=== PATIENT | male | born 1970 | race Caucasian/White ===

== ENCOUNTER 2016-09-18 10:34 | Inpatient (IN) | payer OTHER ==
[~2016-09-18] VITALS: Ht 180.3 cm; Wt 88.7 kg
[~2016-09-18 10:34] MED LIST: LACT1CAP37 PO; MULT-1018 PO
[2016-09-18 10:54] VITALS: BP 112/78; PULSE 86; RESP 16; O2SAT 99
[2016-09-18 11:36] LABS: APPEARANCE,URINE CLEAR (CLEAR,HAZY); COLOR,URINE YELLOW (YELLOW); OCCULT BLOOD,URINE NEGATIVE (NEGATIVE); UROBILINOGEN,URINE NORMAL (NORMAL)
--- NOTE | 2016-09-18 11:43 | ED.REPORT ---
HPI-Abd Pain M 40 and Over Date of Service September 18, 2016 ED Provider: Mauricio Alvarado DO 45 y/o male with a hx of diverticulitis presents to the ED complaining of sharp abdominal pain, onset yesterday. Pt reports he feels like his diverticulitis is flaring up. His current symptoms are similar to the previous sx when he had a microperforation. Associated sx include subjective fever, lower back pain, chills, nausea and constipation for over a week. He aslo reports that he feels there is pressure on his bladder when he breathes. The pt denies vomiting, dyspnea, chest pain and cough. He denies prior diagnosis of bowel obstruction. The pt has an appointment with Dr. Sanderson, GI, next month. Nursing Notes Stated Complaint: ABDOMINAL PAIN Chief Complaint: Male Abdominal Pain Nursing Notes Reviewed: Yes Allergies: Coded Allergies: No Known Allergies (Unverified , 09/18/16) Scheduled Lactobacillus Rhamnosus GG (Culturelle) 1 Each Capsule 1 CAPSULE PO [facility] Multivitamin (Multi Vitamin Daily) 1 Each Tablet 1 EACH PO DAILY General Time Seen by MD: 11:37 Chief Complaint Abdominal pain Hx Obtained From: Patient Arrived By: Walk-in Sudden in Onset?: No Onset Occurred: 1 week ago Symptom Duration: Since onset Progression since Onset: Constant Location: : LLQ Quality: Painful Radiation: : Back Severity: Current: Severe Severity: Maximum: Severe Recent Healthcare: No recent doctor visit Similar Sx Previous: Yes Past Medical History Past Medical History Reports: Diverticulitis Past Surgical History Rhinoplasty Smoking History Former Smoker Social History Alcohol Use: "Social" Drug Use: THC Ambulatory Status Independent Review of Systems Constitutional: Reports: Chills, Fever (subjective) Respiratory: Denies: Dyspnea on exertion, Non-productive cough Cardiovascular: Denies: Chest pain GI: Reports: Abdominal pain, Constipation, Nausea, Denies: Vomiting Musculoskeletal: Reports: Back pain Complete sys rev & neg: except as marked. Physical Exam Initial Vital Signs Vital Signs (First) Date Time Temp Pulse Resp B/P Pulse Ox O2 Delivery O2 Flow Rate FiO2 09/18/16 10:54 36.9 86 16 112/78 99 Room Air Initial VS: Reviewed Head / Eyes: Atraumatic, Normocephalic, PERRL ENT: Mucous membranes moist, Conjunctiva normal, No scleral icterus Neck: Supple, Non-tender, Full range of motion Extremities: Vascular intact, Neuro intact, No swelling, No tenderness Skin: Warm, Dry, No cyanosis Neurologic: Alert, Oriented, Nonfocal Psychiatric: Mood/affect normal, Behavior normal, Normal thought content General/Constitutional: Awake, Alert, Cooperative Distress / Hydration: Positive: Distress mild Respiratory / Chest: Atraumatic, Breath sounds NL, Breath sounds = bilat, No respiratory distress, No rales, No rhonchi, No wheezing Cardiovascular: Heart rate NL, Regular rhythm, Heart sounds NL, No gallop, No murmurs Abdomen: Atraumatic, Soft, No guarding, No rebound Mild lower quadrant tenderness Back: Atraumatic, Full range of motion Interpretation & Diagnostics Lab Results Interpretation Result Diagram: 09/18/16 1134 09/18/16 1134 Test 09/18/16 11:12 09/18/16 11:34 Urine Color Yellow (YELLOW) Urine Appearance Clear (CLEAR,HAZY) Urine pH 6.0 (5.0-8.0) Urine Specific [place] 1.031 (1.003-1.035) Urine Protein Negativemg/dL (NEG,TRACE) Urine Glucose (UA) Negativemg/dL (NEGATIVE) Urine Ketones 40mg/dL (NEGATIVE) Urine Occult Blood Negative (NEGATIVE) Urine Nitrite Negative (NEGATIVE) Urine Bilirubin Negative (NEGATIVE) Urine Urobilinogen Normalmg/dL (NORMAL) Urine Leukocyte Esterase Negative (NEGATIVE) Urine RBC 0-2/hpf (0-2) Urine WBC 0-5/hpf (0-5) Urine Epithelial Cells Occasional/hpf (NONE-MOD) Urine Crystals None seen (NONE SEEN) Urine Bacteria None/hpf (NONE-FEW) Urine Hyaline Casts None/lpf (NONE) Urine Granular Casts None seen (NONE SEEN) Urine Waxy Casts None seen (NONE SEEN) Urine Red Blood Cell Casts None seen (NONE SEEN) Urine White Blood Cell Casts None seen (NONE SEEN) Urine Mucus Present (None Seen) Urine Trichomonas None seen (NONE SEEN) Urine Yeast None (NONE SEEN) Urinalysis Comment None Urine Culture Reflexed Not indicated White Blood Count 13.3th/mm3 (3.8-10.1) Red Blood Count 4.97mil/mm3 (4.40-5.80) Hemoglobin 15.1g/dL (13.8-17.2) Hematocrit 44.0% (41.0-50.0) Mean Corpuscular Volume 88.5fL (81-100) Mean Corpuscular Hemoglobin 30.4pg (27.0-35.0) Mean Corpuscular Hemoglobin Concent 34.3% (32.0-37.0) Red Cell Distribution Width 12.5% (12.3-15.4) Platelet Count 271bil/L (150-400) Neutrophils (%) (Auto) 79.8% (40-74) Lymphocytes (%) (Auto) 10.5% (14-46) Monocytes (%) (Auto) 8.6% (4-12) Eosinophils (%) (Auto) 0.7% (0-5) Basophils (%) (Auto) 0.2% (0-3) Sodium Level 140mEq/L (134-144) Potassium Level 4.7mEq/L (3.5-5.2) Chloride Level 101mEq/L (97-108) Carbon Dioxide Level 26mmol/L (18-29) Blood Urea Nitrogen 15mg/dL (6-24) Creatinine 0.80mg/dL (0.76-1.27) Estimat Glomerular Filtration Rate 112mL/min (>59) Glucose Level 90mg/dL (60-99) Calcium Level 9.4mg/dL (8.5-10.1) Magnesium Level 2.0mg/dL (1.6-2.6) Total Bilirubin 0.5mg/dL (0.0-1.2) Aspartate Amino Transf (AST/SGOT) 15U/L (0-50) Alanine Aminotransferase (ALT/SGPT) 17U/L (0-44) Alkaline Phosphatase 78U/L (25-150) Total Protein 7.0g/dL (6.4-8.4) Albumin 4.2g/dL (3.4-5.0) Lipase 10U/L (13-60) Hold Giraldo Top Tube Received (Received) CT Abd / Pelvis Interpretation IMPRESSION: 1. Severe diverticulitis of the proximal sigmoid colon associated with intramural abscess extending from the colonic wall into the urinary bladder wall. Findings indicate colovesical fistula. 2. Normal appendix. Dictated by: Ti Parks M.D. on 09/18/2016 at 13:27 Approved by: Ti Parks M.D. on 09/18/2016 at 13:30 Study type: Abdominal CT IV contrast Interpretation / Wet Read by: Interpret - Radiologist Re-Eval/Medical Decision Med Decision/Clinical Course Diverticulitis with abscess and possible colovesicular fistula. Zosyn given, and surgery consulted. Patient will be admitted Source of Hx: Old records Time of Eval: 13:36 Re-Evaluation/Progress Note: Pt rechecked. Discussed lab, imaging results and plan to admit. Pt understands and agrees with the plan for admission. All questions addressed. Consultation #1: Referral / Consult Name: Reagan Clemens MD Consulted With: Surgeon Call Returned at: 13:40 Car Rental Manager: Will see patient, Agrees with eval, Agrees with plan Consultation #2: Referral / Consult Name: Krissy Carmen DO Consulted With: Hospitalist Call Returned at: 15:25 Car Rental Manager: Will see patient, Agrees with eval, Agrees with plan, Accepts admit Counseled Regarding: Diagnosis, Lab results, Need for admission Discharge & Departure Primary Impression: Diverticulitis Diverticulitis site: large intestine Diverticulitis bleeding: without bleeding Diverticulitis complication: with abscess Qualified Code: K57.20 - Diverticulitis of large intestine with perforation and abscess without bleeding Disposition: ADMITTED TO HOSPITAL Vital Signs - All Vital Signs Date Time Temp Pulse Resp B/P Pulse Ox O2 Delivery O2 Flow Rate FiO2 09/18/16 13:23 80 14 133/74 97 Room Air 09/18/16 10:54 36.9 86 16 112/78 99 Room Air )( All Prior VS Reviewed: Yes Referrals: Len Clemens MD (PCP) Scribe Attestation Portions of this note were transcribed by Jodi Rasheed. I, , personally performed the history, physical exam and medical decision-making;I reviewed and confirmed the accuracy of the information in the transcribed note. Signed by Holden Duke. 09/18/16 3353 copies to: Len Clemens MD, Timothy S DO September 18, 2016 11:43 Jodi Rasheed September 18, 2016 11:52
[2016-09-18 11:55] LABS: BASOPHILS % (AUTO) 0.2 % (0-3); EOSINOPHILS % (AUTO) 0.7 % (0-5); MONOCYTES % (AUTO) 8.6 % (4-12); Mean Corpuscular Hemoglobin 30.4 pg (27.0-35.0); Mean Corpuscular Volume 88.5 fL (81-100); NEUTROPHILS % (AUTO) 79.8 % (40-74); Platelet Count 271 bil/L (150-400)
[2016-09-18] MEDS ORDERED: 0.9% Sodium Chloride 1,000 ML IV ONE (11:55)
[2016-09-18] MEDS: Ondansetron 2 mg/mL 2 mL Inj IVPUSH PRN ×2 (12:10→20:00)
[2016-09-18] MEDS: HYDROmorphone 1 mg/mL Inj IVPUSH PRN ×2 (12:12→14:00)
[2016-09-18 13:23] VITALS: BP 133/74; PULSE 80; RESP 14; O2SAT 97
--- NOTE | 2016-09-18 13:32 | DRSVH ---
PROCEDURE: CT ABDOMEN AND PELVIS WITH CONTRAST (PNL-7102) INDICATIONS: llq pain TECHNIQUE: After the administration of intravenous contrast, 5 mm thick sections acquired from the diaphragm to the symphysis. 5 mm coronal and sagittal reformats were acquired. For radiation dose reduction, the following was used: automated exposure control, adjustment of mA and/or kV according to patient siz e. COMPARISON: [facility], CR, XR ABD ACUTE SERIES 3VW, 04/25/2016, 10:46. [facility], CT, CT ABD PELVIS W CON, 09/26/2015, 11:03. FINDINGS: Image quality: Excellent. ABDOMEN: Lung bases: Lung bases are clear. Heart size is normal. Solid organs: Liver and spleen are normal in size and enhancement. Gallbladder is within normal estrada its. Biliary system is non dilated. Pancreas enhances normally. No adrenal nodules. Kidneys demon strate normal size and enhancement, without hydronephrosis. Peritoneum and bowel: Small hiatal hernia. Stomach and small bowel are within normal limits. Appendix is normal. Colon is nondistended. There is diverticulosis of the descending and sigmoid colon. There is severe thickening of the proximal and mid sigmoid colon, with severe surrounding fat stranding. A 32 mm diameter intramural fluid collection within the inferior wall of the proximal sigmoid colon ad jacent to the superior urinary bladder wall is present, which extends inferiorly to involve the super ior urinary bladder wall. No free fluid or air. Nodes and vessels: No retroperitoneal or mesenteric adenopathy by size criteria. Aorta and inferior vena cava are normal in size. Miscellaneous: No ventral hernias. PELVIS: Genitourinary: There is severe thickening of the superior wall of the urinary bladder adjacent to the proximal sigmoid colon. Intramural fluid collection within the superior bladder wall is present, con tiguous with intramural fluid collection involving the adjacent colon. Miscellaneous: No inguinal hernias or adenopathy. Bones: No suspicious bony lesions. No vertebral body compression fractures. IMPRESSION: 1. Severe diverticulitis of the proximal sigmoid colon associated with intramural abscess extending f rom the colonic wall into the urinary bladder wall. Findings indicate colovesical fistula. 2. Normal appendix. Dictated by: Ti Parks M.D. on 09/18/2016 at 13:27 Approved by: Ti Parks M.D. on 09/18/2016 at 13:30
[2016-09-18] MEDS ORDERED: Piperacillin-Tazo 3.375 Gm Inj 3.375 GM in Dextrose 5% Minibag Plus 50 ML IV ONE (13:35)
[2016-09-18] MEDS ORDERED: MAGN250T29 PO (15:31)
[2016-09-18] MEDS ORDERED: ZINC30TA2 PO (15:31)
[2016-09-18] MEDS ORDERED: CHOL10008 PO (15:31)
[2016-09-18] MEDS ORDERED: CYAN1TAB19 PO (15:31)
[2016-09-18] MEDS ORDERED: Ondansetron 2 mg/mL 2 mL Inj IVPUSH PRN (15:35)
[2016-09-18] MEDS ORDERED: Alum-Mag Hydrox-Simeth 30 mL Suspension PO PRN (15:35)
[2016-09-18] MEDS ORDERED: 0.9% Sodium Chloride 1,000 ML IV SCH (15:52)
[2016-09-18] MEDS ORDERED: Polyethylene Glycol (PEG) 17 Gm Powder PO PRN (15:55)
--- NOTE | 2016-09-18 16:02 | CONS ---
[address] [address] CONSULTATION REPORT PATIENT: DEBRA HENDRICKSON : 1970 MR#: [id number] ADMIT: 09/18/2016 JOB ID: [id number] DATE OF SERVICE: 09/18/2016 CHIEF COMPLAINT: Recurrent diverticulitis, possible colovesical fistula. HISTORY OF PRESENT ILLNESS: The patient is a 45-year-old male who presented to the emergency department today due to constipation and lower abdominal pain. Patient's history dates back to September 2015, when he was admitted to this hospital with sigmoid diverticulitis with possible microperforation. The patient was admitted then and stayed in-house for approximately two or three days and was discharged home. The patient did have a colonoscopy at [facility] approximately 4-5 years ago but has not had one since that time. Patient reports having a small flare-up of his diverticulitis approximately six months ago but it did not require hospitalization. The patient has been battling with this GI issue for the past year or so. He is trying to change his diet. He is drinking prune juice to help with his constipation. He is trying to cut out carb from his diet and he has been having colonic massages. Due to the lower abdominal pain, the patient underwent a CT scan today in the emergency department and that shows fairly severe diverticulitis of the proximal sigmoid colon associated with intramural abscess extending from the colonic wall to the urinary bladder wall, suspicious for colovesical fistula. The patient does report having some lower abdominal pressure when he tries to urinate but he denies any air bubbling coming out of the urine or any particulate matter in the urine. The patient does report having some chills. The patient also reports that it does hurt trying to have a bowel movement. He is passing some flatus. Today his white blood count is 13.3. The patient has just recently made an appointment to see Dr. Sanderson next month. PAST MEDICAL HISTORY: Diverticulitis with microperforation in September 2015, Nose surgery. MEDICATIONS AT HOME: Just vitamins. ALLERGIES: None. SOCIAL HISTORY: Patient has a fiancee. 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 Together with his fiancee they have a son and a daughter. They live in the [place] area. He does report occasional use of marijuana. FAMILY HISTORY: Colon cancer in a grandmother and colonic polyps in his mother and uncle. PHYSICAL EXAMINATION: The patient is currently in the emergency department [facility] in no acute distress. Temperature is 36.9, blood pressure 133/74, pulse is 80 respirations 14. His BMI is 26.6. Head is normocephalic, atraumatic. Neck is supple. Heart is regular rate. Lungs are clear. Abdomen is nondistended. It is mostly soft on the right lower quadrant. There is mild tenderness to palpation in the suprapubic location and also just to the left of the midline of the suprapubic location. There is no rebound and there are no palpable masses. Extremities shows no clubbing and no cyanosis. Neurologically, patient is awake and alert and follows commands and conversant. LABORATORY EXAMINATION: Today shows a white blood count of 13.3, hematocrit 44, platelet count 271. Sodium is 140, potassium 4.7, creatinine 0.80. Lipase of 10, total bilirubin 0.5. His abdominal CT scan report from today shows diverticulosis of the descending and sigmoid colon. There is severe thickening of the proximal and mid sigmoid colon with severe fat stranding. There is a 32 mm intramural fluid collection within the inferior wall of the proximal sigmoid colon adjacent to the superior urinary bladder wall. There is no free air or fluid. ASSESSMENT: This is a 45-year-old male with a 2nd hospitalization in exactly one year with complicated diverticulitis with probable intramural abscess adjacent to the bladder. There is possible colovesical fistula on the CT scan. However, clinically he does not and I don't see any air within the bladder. The patient should be admitted to the hospital with n.p.o. and IV fluids and started on IV antibiotics. It would be nice if the patient can tolerate a bowel prep and to have a colonoscopy to clear his colon prior to surgical intervention, which would involve sigmoid resection. I will likely discuss this case with my partner, Dr. Richar Neal. We will follow the patient along with you. GERRY
[2016-09-18 16:07] VITALS: BP 116/74; PULSE 74; RESP 18; O2SAT 97
[2016-09-18] MEDS: 0.9% Sodium Chloride 1,000 ML IV SCH (16:38)
[2016-09-18] MEDS: Heparin 5,000 Unit/mL Inj SUBQ SCH ×2 (16:41→23:52)
--- NOTE | 2016-09-18 17:22 | PCM.HPMED ---
Subjective Date of Service September 18, 2016 Primary Provider: Admitting Physician: Krissy Carmen DO Primary Care Physician: Len Clemens MD Attending Physician: Krissy Carmen DO Admit Status: From the Emergency Department Chief Complaint: Abdominal pain History of Present Illness: This is a 45-year-old pleasant white male with past medical history of diverticulitis with microperforations that occurred exactly one year ago, questionable hemorrhoids is presenting with LLQ abdominal pain that has been ongoing since yesterday. Patient states that sometimes he gets abdominal cramping followed by a bit of blood in his stool. It is never a large amount of blood but he can wipe it. However the symptoms were much worse this time around and he did not have blood in the stool today. He has had a colonoscopy 4 -5 years ago at [facility]. He states that he has pain with defecation and urination. Patient is scheduled to see Dr. Calvert in 1 month. Patient states that he tried enemas but his constipation has not resolved. He stated that pain is about 4-5 out of 10. Last bowel movement was on last Monday. In between he has had small painful bowel movements. Patient has had subjective fevers, no back pain, chills, nausea vomiting, constipation for a week. He states that he feels bloated and not passing gas, pressure and let bladder for one week as well. Patient states that after last year's episode, he and his fiance have changed their diet to include more vegetables and fiber and they are cutting down and white flour In the ER elevated white count of 13.3 is noted patient is given pain control, CT abdominopelvic with contrast is read as colovesicular fistula, severe diverticulitis of the proximal sigmoid colon, intermural abscess colonic wall to urinary bladder wall. Dr. Clemens from general surgery has seen the patient in the ER examined the patient. He did not feel that patient is experiencing gas while urinating based on his exam though CT has revealed a fistula. He will be following the patient. Review of Systems: Gen.: No weight gain patient has been having fevers and malaise Eyes: no visual disturbances or blurring vision HEENT: No nose/throat drainage, no pain in ears or throat, no hearing loss Lymph: No lymph nodes noted Cardiac: No chest pain, orthopnea, PND, palpitations , pedal edema or dyspnea on exertion Pulmonary: wheezing or bringing up of sputum , no worsening dyspnea and cough, no left-sided chest pain GI: Positive for nausea, vomiting, blood in stool : Positive for pain with urination Musculoskeletal: Positive for some back pain Neuro: No syncope, seizures no loss of consciousness no new focal weakness, numbness or tingling Psychiatric: New new anxiety insomnia or depression Endocrine: No new heat or cold intolerances polyuria or polydipsia Hematology: No lymphadenopathy or easy bleeding or bruising noted skin: No new rashes, stasis dermatitis Allergies Coded Allergies: No Known Allergies (Unverified , 09/18/16) PMH Remarkable for diverticulitis with microperforation 09/27, hemorrhoids, rhinoplasty Surgical History Rhinoplasty Family History Mother: Diverticulitis Data: Diverticulitis: MGM: Colon cancer uncle , Aunt on maternal side polyps Social History 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 Bowel sounds are present Extremities negative for edema Vascular: pedal pulses palpable neck negative for thyromegaly, trachea central, negative for JVD Psych: Negative for anxiety and agitation Neuro: No focal deficits Lab and Diagnostics Result Diagram: 09/18/16 1134 09/18/16 1134 X-Rays, CTs and MRIs [facility] Diagnostic [place] [address] Patient Name: DEBRA HENDRICKSON MR#: [id number] Location: [facility] Ordering Phys: Mauricio Alvarado DO Date of Service: 09/18/16 1153 PROCEDURE: CT ABDOMEN AND PELVIS WITH CONTRAST ([id number]) INDICATIONS: llq pain IMPRESSION: 1. Severe diverticulitis of the proximal sigmoid colon associated with intramural abscess extending from the colonic wall into the urinary bladder wall. Findings indicate colovesical fistula. 2. Normal appendix. Dictated by: Ti Parks M.D. on 09/18/2016 at 13:27 Approved by: Ti Parks M.D. on 09/18/2016 at 13:30 Assessment & Plan This is a 45-year-old male with prior episode of diverticular microperforation, diverticulitis is presenting with a repeat occurrence this time with a possible enterocolic fistula. Assessment #1 diverticulitis complicated by abscess, present on admission -- Zosyn antibiotics monotherapy to cover for enteric gram negatives, and anaerobes -- Nothing by mouth diet, IV hydration, Zofran for nausea, Protonix for GERD prophylaxis -- Pain control with morphine, ketorolac IV -- Gen. surgery was consulted: We appreciated their input Assessment #2 colovesicular fistula: CT has displayed this, surgeries not quite sure this is the case -- Surgeries following -- Follow surgery recommendations Assessment #3 constipation, present on admission -- As his inflammation resolves and expect that he will be able to pass stool more easily -- Currently nothing by mouth -- Unlikely that suppositories and enemas to help at this point -- Continue to monitor Assessment #4 nausea vomiting -- Continue Zofran -- He does not appear Toxic enough per NG tube for decompression CODE STATUS: Full code Alternate decision-maker Derick [phone] Disposition: Surgical management has to be ruled out. Advanced diet slowly and if he tolerates he make proceed with outpatient colonoscopy in 6 weeks, or if he does not tolerate he may need surgery. We will follow surgical recommendations. Pain Evaluation: Adequate Pain Control VTE Prophylaxis: Sub-Q Heparin (Unfractionated) Resuscitation Status: CPR: Attempt Resuscitation Time spent 40 minutes Krissy Carmen DO September 18, 2016 17:22
[2016-09-18 21:20] VITALS: BP 123/66; PULSE 84; RESP 16; O2SAT 94
[2016-09-18] MEDS: Piperacillin-Tazo 3.375 Gm Inj 3.375 GM in Dextrose 5% Minibag Plus 50 ML IV SCH (22:31)
[2016-09-19 00:55] VITALS: BP 97/59; PULSE 71; RESP 16; O2SAT 95
[2016-09-19] MEDS: 0.9% Sodium Chloride 1,000 ML IV SCH ×3 (02:36→22:09)
--- NOTE | 2016-09-19 03:45 | NUR ---
Admission to 1030 / Pain control Pt was settled into room, oriented to call light, routines and plan of care at start of shift; admission had been completed. Lower abdominal pain well controlled with IV Toradol, Morphine also worked but caused some mild nausea and didn't last as long. Anticipating surgical consult in am. Hourly rounding ongoing.
[2016-09-19 05:55] VITALS: BP 98/60; PULSE 64; RESP 16; O2SAT 96
[2016-09-19] MEDS: Piperacillin-Tazo 3.375 Gm Inj 3.375 GM in Dextrose 5% Minibag Plus 50 ML IV SCH ×3 (06:10→22:09)
[2016-09-19 06:34] LABS: BASOPHILS % (AUTO) 0.2 % (0-3); EOSINOPHILS % (AUTO) 0.6 % (0-5); MONOCYTES % (AUTO) 13.2 % (4-12); Mean Corpuscular Hemoglobin 30.6 pg (27.0-35.0); Mean Corpuscular Volume 89.7 fL (81-100); NEUTROPHILS % (AUTO) 74.3 % (40-74); Platelet Count 255 bil/L (150-400)
[2016-09-19 07:05] LABS: INR 0.99 ratio
[2016-09-19] MEDS ORDERED: Ciprofloxacin Inj 400 MG in IV Premix 1 EACH IV SCH (08:30)
[2016-09-19] MEDS ORDERED: metroNIDAZOLE Inj 500 MG in IV Premix 1 EACH IV SCH (08:30)
[2016-09-19] MEDS: Heparin 5,000 Unit/mL Inj SUBQ SCH ×2 (10:19→17:30)
[2016-09-19] MEDS: Pantoprazole 4 mg/mL 10 mL Inj IVPUSH SCH (10:20)
--- NOTE | 2016-09-19 10:46 | NUR ---
Social Work-screening/ readiness for discharge: data:EMR reviewed. Pt is a 45 y/o male who was admitted on 09/18/16 for diverticulitis per H&P. Pt's insurance is [facility] and PCP is Len Clemens MD. EMR reviewed. Pt's readmission score is 0. SW met with pt to discuss discharge planning, SW role explained. Pt resides at home with his fiance and is independent at baseline. Pt confirms that he has not completed DPOA/ advanced directive, pt confirms he would like some information, SW provided pt with information. Pt's fiance to provide transport home at discharge. SW provided phone number and plan on white board in room. No discharge needs identified. SW will continue to follow if needs arise. Assessment:pt who is independent at baseline. Plan:Pt to discharge home when medically stable via POV. No discharge needs identified. SW will continue to follow if needs arise. Linnette Miller MSW
--- NOTE | 2016-09-19 11:44 | PROG NOTE ---
[address] [address] PROGRESS NOTE PATIENT: DEBRA HENDRICKSON : 1970 MR#: [id number] ADMIT: 09/18/2016 JOB ID: [id number] DATE: 09/19/2016 SUBJECTIVE: The patient is subjectively and objectively markedly improved from his admission. He reports continued passage of flatus, no passage of stool, but much less pain. On examination, he does have mild to moderate left lower quadrant tenderness. His white count remains elevated at 12.4. IMPRESSION/PLAN: He appears to be responding well to the antibiotic treatment. He tells me that he never got around to having a colonoscopy since his previous episode one year ago. At this point, we will plan to continue his IV antibiotics. I suspect that he will get over this, and we would then bring him back for an outpatient colonoscopy. Given his young age, I think it would be reasonable to consider an elective sigmoid resection once this all gets better, and he is inclined to go that route. I have ordered a CEA just to document that it is normal, given that he has had some obstructive symptoms for the past year and, if his CEA is elevated, it would add some urgency to his workup.
[2016-09-19 12:41] VITALS: BP 113/69; PULSE 72; RESP 16; O2SAT 96
--- NOTE | 2016-09-19 13:27 | PCM.PNMED ---
Subjective Date of Service September 19, 2016 Subjective Abdominal pain improved. No bubbling in urine. Afebrile Exam Vital Signs Vital Sign - Last Date Time Temp Pulse Resp B/P Pulse Ox O2 Delivery O2 Flow Rate FiO2 09/19/16 12:41 37.1 72 16 113/69 96 Room Air Intake and Output 09/18/16 09/18/16 09/19/16 Cumulative From/Thru 15:00 23:00 07:00 09/18/16 10:54 - 09/19/16 06:11 Intake Total 1000 ml 1391 ml 2391 ml Balance 1000 ml 1391 ml 2391 ml IV Total 1000 ml 1391 ml 2391 ml Exam General no acute distress laying in bed conversing pleasantly HEENT: Normocephalic atraumatic Heart: Regular rate and rhythm no S3 or S4 sounds Lungs clear to auscultation no crackles or wheezes Abdomen nondistended mostly nontender slight tenderness below the umbilicus to the left lower quadrant. Bowel sounds are present Extremities negative for edema Vascular: pedal pulses palpable neck negative for thyromegaly, trachea central, negative for JVD Psych: Negative for anxiety and agitation Neuro: No focal deficits IVs and Medications Medications Reviewed: Medications were reviewed in detail Lab and Diagnostics Result Diagram: 09/19/16 0600 09/19/16 0600 X-Rays, CTs and MRIs [facility] Diagnostic Imaging Department [place], [place] [id number] Patient Name: DEBRA HENDRICKSON MR#: [id number] [place] [facility] [place]ing Phys: Mauricio Alvarado DO Date of Service: 09/18/16 1153 PROCEDURE: CT ABDOMEN AND PELVIS WITH CONTRAST ([id number]) INDICATIONS: llq pain IMPRESSION: 1. Severe diverticulitis of the proximal sigmoid colon associated with intramural abscess extending from the colonic wall into the urinary bladder wall. Findings indicate colovesical fistula. 2. Normal appendix. Dictated by: Ti Parks M.D. on 09/18/2016 at 13:27 Approved by: Ti Parks M.D. on 09/18/2016 at 13:30 Assessment & Plan This is a 45-year-old male with prior episode of diverticular microperforation, diverticulitis is presenting with a repeat occurrence this time with a possible enterocolic fistula. #1 diverticulitis complicated by abscess, present on admission -- Zosyn antibiotics monotherapy to cover for enteric gram negatives, and anaerobes -- Nothing by mouth diet, IV hydration, Zofran for nausea, Protonix for GERD prophylaxis -- Pain control with morphine, ketorolac IV -- Gen. surgery was consulted: We appreciated their input #2 suspected colovesicular fistula on imaging: CT has displayed this, clinically does not seem to be the case. -- Surgeries following -- Follow surgery recommendations #3 constipation, present on admission -- As his inflammation resolves and expect that he will be able to pass stool more easily -- Currently nothing by mouth -- Unlikely that suppositories and enemas to help at this point -- Continue to monitor CODE STATUS: Full code Alternate decision-maker Derick [phone] Disposition: Advanced diet slowly and if he tolerates he make proceed with outpatient colonoscopy in 6 weeks, or if he does not tolerate he may need surgery. We will follow surgical recommendations. VTE Prophylaxis: Sub-Q Heparin (Unfractionated) Resuscitation Status: CPR: Attempt Resuscitation Shmuel Jefferson MD September 19, 2016 13:27
--- NOTE | 2016-09-19 16:35 | NUR ---
Urine assessment Pts urine this morning had lots of thick sediment with foul odor and several brown specs. Pt. states he has no pain or problems with urinating. notified of assessment.
[2016-09-19 21:35] VITALS: BP 110/68; PULSE 62; RESP 16; O2SAT 97
[2016-09-20 00:56] VITALS: BP 105/67; PULSE 66; RESP 14; O2SAT 96
[2016-09-20] MEDS: Heparin 5,000 Unit/mL Inj SUBQ SCH ×4 (02:20→23:17)
[2016-09-20 06:06] VITALS: BP 108/68; PULSE 67; RESP 12; O2SAT 96
--- NOTE | 2016-09-20 06:25 | NUR ---
Urine Patient reports possible fecal matter in urine and air pockets while voiding. Urine is pale, cloudy, and with dark "Specks." MD notified, sample sent to lab. Will continue to monitor with eliminating infection as primary goal. Pain managed and reported at tolerable levels. Patient education and reassurance throughout shift. Will continue plan of care.
[2016-09-20] MEDS: Piperacillin-Tazo 3.375 Gm Inj 3.375 GM in Dextrose 5% Minibag Plus 50 ML IV SCH ×3 (06:35→23:17)
[2016-09-20] MEDS ORDERED: PEG/Electrolytes 4,000 mL Solution PO ONE (07:45)
[2016-09-20 09:07] LABS: EOSINOPHILS % (AUTO) 1.3 % (0-5); MONOCYTES % (AUTO) 6.5 % (4-12); Mean Corpuscular Hemoglobin 30.2 pg (27.0-35.0); Platelet Count 298 bil/L (150-400)
[2016-09-20] MEDS: Pantoprazole 4 mg/mL 10 mL Inj IVPUSH SCH (09:26)
[2016-09-20] MEDS: 0.9% Sodium Chloride 1,000 ML IV SCH (09:27)
--- NOTE | 2016-09-20 10:02 | PROG NOTE ---
[address] [address] PROGRESS NOTE PATIENT: DEBRA HENDRICKSON : 1970 MR#: [id number] ADMIT: 09/18/2016 JOB ID: [id number] DATE: 09/20/2016 SUBJECTIVE: The patient has remained afebrile with stable vital signs overnight. Last night, he noted that he began passing what appeared to be solid chunks of tissue in his urine. He was not obstructed, but he does feel as if his colon is emptying gas into his bladder. He noted also that last night he went to the bathroom to urinate, that his who was sitting outside his bathroom thought that he was passing gas per rectum, but he was actually passing that gas in his urinary stream. Examination is essentially unchanged. His white count is down to 6.9, his hematocrit is 40.3. 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 We discussed options in treatment and, at this point, I will give him some Colyte with the hopes that we can clear out his bowel fairly well. We discussed the possibility of moving ahead with a laparoscopic sigmoid resection with resection and primary anastomosis this hospitalization, with an increased risk of a need for colostomy compared to a delayed procedure, with the benefit of addressing his colovesical fistula sooner rather than later. We will see how he tolerates a couple L of Colyte and how his urinary symptoms behave at this point.
[2016-09-20 14:29] VITALS: BP 117/72; PULSE 63; RESP 16; O2SAT 96
[2016-09-20 17:23] VITALS: BP 128/78; PULSE 71; RESP 16; O2SAT 96
--- NOTE | 2016-09-20 17:29 | NUR ---
pt had go lightly x 2000 ml Addendum: 09/20/16 at 1730 by GEOVANI REAVES CNA Amended: Links added.
[2016-09-20] MEDS: LORazepam 0.5 mg Tablet PO PRN (17:37)
--- NOTE | 2016-09-20 17:41 | PROG NOTE ---
[address] [address] PROGRESS NOTE PATIENT: DEBRA HENDRICKSON : 1970 MR#: [id number] ADMIT: 09/18/2016 JOB ID: [id number] DATE: 09/20/2016 SUBJECTIVE: The patient remains afebrile with stable vital signs. He is tolerating p.o. GoLYTELY with liquid stool coming out per rectum as well as fecal material in his urinary stream. He tells me that he can feel his urinary bladder filling up with air from his colon and he then passes it. His symptomatic colovesical fistula warrants early surgical intervention. I have talked to him about trying to clean him out from above over the next 24 hours, continue his intravenous antibiotics and plan to take him to the operating room for a laparoscopic possible open sigmoid colectomy with repair of his colovesical fistula. I have explained that if we can get him cleaned out and his pelvis is relatively free of inflammation, that we may safely be able to do a primary anastomosis, but that he as well may end up with a temporary colostomy. I have explained that that final decision will be made intraoperatively. We also discussed the fact that he will have a Torres catheter in place postoperatively for some time until we are confident that his bladder repair has healed. We will see how he tolerates the bowel prep tomorrow and tentatively plan to operate on him at 9 a.m. on . I will review these plans with his later on this evening as well.
--- NOTE | 2016-09-20 18:27 | NUR ---
ANXIETY/GI/PLAN P-Patient having situational anxiety. What appears to be feces in urine, fistula (colon vs bladder). I- Patient given 0.5mg Ativan for anxiety. Dr Neal orders for go Balmorhea today and tomorrow to clean out colon for exploratory surgery Thurs morning. Possible colostomy and Torres catheter, pending surgery. E-Patient appears less anxious, is aware of plan. Looking forward to speaking with surgeon to discuss consent.
[2016-09-20 20:33] VITALS: BP 111/63; PULSE 88; RESP 16; O2SAT 96
--- NOTE | 2016-09-20 21:14 | PCM.PNMED ---
Subjective Date of Service September 20, 2016 Subjective pain resolved,patient started to have air bubbles in urine overnight ,afebrile Exam Vital Signs Vital Sign - Last Date Time Temp Pulse Resp B/P Pulse Ox O2 Delivery O2 Flow Rate FiO2 09/20/16 20:33 37.4 88 16 111/63 96 Room Air Intake and Output 09/19/16 09/19/16 09/20/16 Cumulative From/Thru 15:00 23:00 07:00 09/18/16 10:54 - 09/20/16 06:50 Intake Total 0 ml 1058 ml 1359 ml 4808 ml Output Total 475 ml 900 ml 750 ml 2125 ml Balance -475 ml 158 ml 609 ml 2683 ml Intake Oral 0 ml 0 ml 0 ml 0 ml IV Total 1058 ml 1359 ml 4808 ml Output Urine Total 475 ml 900 ml 750 ml 2125 ml # Bowel Movements 0 0 Exam General no acute distress laying in bed conversing pleasantly HEENT: Normocephalic atraumatic Heart: Regular rate and rhythm no S3 or S4 sounds Lungs clear to auscultation no crackles or wheezes Abdomen nondistended mostly nontender slight tenderness below the umbilicus to the left lower quadrant. Bowel sounds are present Extremities negative for edema Vascular: pedal pulses palpable neck negative for thyromegaly, trachea central, negative for JVD Psych: Negative for anxiety and agitation Neuro: No focal deficits IVs and Medications Medications Reviewed: Medications were reviewed in detail Lab and Diagnostics Result Diagram: 09/20/16 0900 09/20/16 0900 X-Rays, CTs and MRIs PROCEDURE: CT ABDOMEN AND PELVIS WITH CONTRAST ([id number]) INDICATIONS: llq pain IMPRESSION: 1. Severe diverticulitis of the proximal sigmoid colon associated with intramural abscess extending from the colonic wall into the urinary bladder wall. Findings indicate colovesical fistula. 2. Normal appendix. Dictated by: Ti Parks M.D. on 09/18/2016 at 13:27 Approved by: Ti Parks M.D. on 09/18/2016 at 13:30 Assessment & Plan This is a 45-year-old male with prior episode of diverticular microperforation, diverticulitis is presenting with a repeat occurrence this time with a possible enterocolic fistula. #1 diverticulitis complicated by abscess, present on admission -- Zosyn antibiotics monotherapy to cover for enteric gram negatives, and anaerobes -- Nothing by mouth diet, IV hydration, Zofran for nausea, Protonix for GERD prophylaxis -- Pain control with morphine, ketorolac IV -- Gen. surgery was consulted: We appreciated their input #2 colovesicular fistula -- Surgeries following -- tentative plan for laparoscopy on after bowel prep today and tomorrow -may end up with temporary colostomy and indwelling springer postop CODE STATUS: Full code Alternate decision-maker Derick [phone] Disposition: pending clinical course VTE Prophylaxis: Sub-Q Heparin (Unfractionated) VTE Mechanical Devices: Venous Foot Pump Resuscitation Status: CPR: Attempt Resuscitation Shmuel Jefferson MD September 20, 2016 21:14
[2016-09-21] MEDS: LORazepam 0.5 mg Tablet PO PRN ×3 (02:06→21:22)
--- NOTE | 2016-09-21 04:06 | NUR ---
Activity Patient able to consult with surgeon this shift, states questions have been answered, and agreeable to plan of care. Pain managed effectively this shift. Anxiety has been at a minimal due to new anti anxiety prescription. Remains NPO and will finish co-lyltely treatment during following shift.
[2016-09-21 06:30] VITALS: BP 125/76; PULSE 77; RESP 16; O2SAT 98
[2016-09-21 07:36] LABS: BASOPHILS % (AUTO) 0.6 % (0-3); EOSINOPHILS % (AUTO) 1.3 % (0-5); MONOCYTES % (AUTO) 9.8 % (4-12); Mean Corpuscular Hemoglobin 30.2 pg (27.0-35.0); Mean Corpuscular Volume 86.8 fL (81-100); NEUTROPHILS % (AUTO) 81.8 % (40-74); Platelet Count 268 bil/L (150-400)
[2016-09-21 07:58] LABS: Magnesium 1.8 mg/dL (1.6-2.6)
[2016-09-21] MEDS: Piperacillin-Tazo 3.375 Gm Inj 3.375 GM in Dextrose 5% Minibag Plus 50 ML IV SCH ×3 (08:59→22:26)
[2016-09-21] MEDS: Heparin 5,000 Unit/mL Inj SUBQ SCH ×2 (09:00→16:24)
[2016-09-21] MEDS ORDERED: PEG/Electrolytes 4,000 mL Solution PO ONE (09:00)
[2016-09-21] MEDS: Pantoprazole 4 mg/mL 10 mL Inj IVPUSH SCH (09:01)
[2016-09-21 12:50] VITALS: BP 118/69; PULSE 87; RESP 16; O2SAT 98
--- NOTE | 2016-09-21 13:32 | NUR ---
NUTRITION ASSESSMENT: ASSESS: 45 YO male admitted for abd. pain with diverticulitis with microperforation. Pt with large colovesicular fistula currently undergoing GoLytely prep. Plan is for pt to go to OR on 09/22 for laparoscopic possibly open sigmoid colectomy with repair of colovesical fistula. Pt has been NPO / clear liquids now x 3 days. PMHx: Diverticulitis, with microperforation (september 2015), hemorrhoids, rhinoplasty. LABS: Reviewed. MEDS: Reviewed. GI: BM x 5 (09/20) due to Golytely prep. CURRENT WT: 86.3 kg. DIET: Clear liquids. EST. NEEDS: 7613-7600 kcals (25-30 kcals/kg BW), 105-130 g protein (1.2-1.5 g/kg BW) NUTRITION DIAGNOSIS: 1.) Inadequate oral intake related to decreased ability to consume sufficient energy as evidenced by current NPO / clear liquid status x 3 days. 2.) Altered GI function related to alteration in GI tract structure and/or function as evidenced by diverticulitis with current colovesical fistula. NUTRITION INTERVENTION: 1.) Will continue to await timely advancement of diet. If it is anticipated that diet will not be able to be advanced and well tolerated in the next 48 hours, consider starting nutrition support, likely TPN. MONITOR / EVAL: Diet advancement / tolerance, possible nutrition support, labs, GI and nutritional status. Follow per high nutritional risk guidelines.
[2016-09-21 14:05] VITALS: PULSE 92; RESP 24; O2SAT 97
--- NOTE | 2016-09-21 15:16 | NUR ---
fever temp 38.9 ax, HR 92, pt shivering and cold, Dr Jefferson ordered BCs drawn, Tylenol given, 1 hour later temp still 38.8 ax.
--- NOTE | 2016-09-21 16:35 | PCM.PNSURG ---
Subjective Visit Information: Reason for Visit Diverticulitis With Abscess Surgery/Surgery Date Post-Op Day # Date of Admission: September 18, 2016 at 14:45 Hospital Day # Subjective: Stable overnight on antibiotics. WBC decreasing. Getting a prep for tomorrow' s colectomy. Still has pneumaturia. Objective Vital Sign- Last 8 Hours Date Time Temp Pulse Resp B/P Pulse Ox O2 Delivery O2 Flow Rate FiO2 09/21/16 15:09 38.8 09/21/16 14:05 38.9 92 24 97 09/21/16 12:50 36.6 87 16 118/69 98 Intake and Output- Last 8 Hour 09/21/16 Cumulative From/Thru 07:00 09/18/16 10:54 - 09/21/16 04:05 Intake Total 195 ml 8053 ml Output Total 4025 ml Balance 195 ml 4028 ml Intake Oral 2000 ml IV Total 195 ml 6053 ml Output Urine Total 4025 ml # Bowel Movements 5 General: Alert, Oriented X3, Cooperative, No Acute Distress Abdomen: Benign, Soft, Non-tender Result Diagram: 09/21/16 0720 09/21/16 0720 Assessment & Plan Impression 45yom with complicated diverticulitis with colovesical fistula. Problems: Plan I agree with Dr. Neal's plan to proceed to surgery tomorrow. We discussed the implications of anastomosis vs. end colostomy vs. diverting ileostomy with anastomosis, as well as springer, all which had been addressed by Dr. Neal previously. The patient agrees that surgery is warranted and is ready to undergo surgery. He asked that I be involved in the case, and therefore I will be assisting Dr. Neal. VTE Prophylaxis: Sub-Q Heparin (Unfractionated) Resuscitation Status: CPR: Attempt Resuscitation Kenya Weiss MD September 21, 2016 16:35
--- NOTE | 2016-09-21 17:20 | NUR ---
pt went about 30 plus times mixed stool with urine due to his Go Lightly liquid Addendum: 09/21/16 at 1721 by GEOVANI REAVES CNA Amended: Links added.
--- NOTE | 2016-09-21 18:12 | PCM.PNMED ---
Subjective Date of Service September 21, 2016 Subjective Had fever today, blood cultures requested. Getting bowel prep for laparoscopy tomorrow Exam Vital Signs Vital Sign - Last Date Time Temp Pulse Resp B/P Pulse Ox O2 Delivery O2 Flow Rate FiO2 09/21/16 16:32 38.1 09/21/16 14:05 92 24 97 09/21/16 12:50 118/69 09/21/16 06:30 Room Air Intake and Output 09/20/16 09/20/16 09/21/16 Cumulative From/Thru 14:59 22:59 06:59 09/18/16 10:54 - 09/21/16 04:05 Intake Total 3050 ml 195 ml 8053 ml Output Total 1900 ml 4025 ml Balance 1150 ml 195 ml 4028 ml Intake Oral 2000 ml 2000 ml IV Total 1050 ml 195 ml 6053 ml Output Urine Total 1900 ml 4025 ml # Bowel Movements 5 5 Exam General no acute distress laying in bed conversing pleasantly HEENT: Normocephalic atraumatic Heart: Regular rate and rhythm no S3 or S4 sounds Lungs clear to auscultation no crackles or wheezes Abdomen nondistended mostly nontender slight tenderness below the umbilicus to the left lower quadrant. Bowel sounds are present Extremities negative for edema Vascular: pedal pulses palpable neck negative for thyromegaly, trachea central, negative for JVD Psych: Negative for anxiety and agitation Neuro: No focal deficits IVs and Medications Medications Reviewed: Medications were reviewed in detail Lab and Diagnostics Result Diagram: 09/21/1671909/21/16 07 X-Rays, CTs and MRIs PROCEDURE: CT ABDOMEN AND PELVIS WITH CONTRAST ([id number]) INDICATIONS: llq pain IMPRESSION: 1. Severe diverticulitis of the proximal sigmoid colon associated with intramural abscess extending from the colonic wall into the urinary bladder wall. Findings indicate colovesical fistula. 2. Normal appendix. Dictated by: Ti Parks M.D. on 09/18/2016 at 13:27 Approved by: Ti Parks M.D. on 09/18/2016 at 13:30 Assessment & Plan This is a 45-year-old male with prior episode of diverticular microperforation, diverticulitis is presenting with a repeat occurrence this time with a possible enterocolic fistula. #1 diverticulitis complicated by abscess and colovesical fistula, present on admission -- Zosyn antibiotics monotherapy to cover for enteric gram negatives, and anaerobes -- Nothing by mouth diet, IV hydration, Zofran for nausea, Protonix for GERD prophylaxis -- Pain control with morphine, ketorolac IV -- Going for surgery tomorrow #2 colovesicular fistula -- Surgeries following -- tentative plan for laparoscopy on after bowel prep today -may end up with temporary colostomy and indwelling springer postop CODE STATUS: Full code Alternate decision-maker Derick [phone] Disposition: pending clinical course VTE Prophylaxis: Sub-Q Heparin (Unfractionated) VTE Mechanical Devices: Venous Foot Pump Resuscitation Status: CPR: Attempt Resuscitation Shmuel Jefferson MD September 21, 2016 18:12
[2016-09-21 20:25] VITALS: BP 122/74; PULSE 73; RESP 16; O2SAT 98
[2016-09-22] VITALS (13 sets, daily range): BP systolic 107–139; BP diastolic 64–77; PULSE 70–115; RESP 12–18; O2SAT 93–97
[2016-09-22] MEDS: Heparin 5,000 Unit/mL Inj SUBQ SCH ×3 (00:34→16:05)
--- NOTE | 2016-09-22 02:13 | NUR ---
Anxiety/Bowels Pt requested prn ativan at HS for anxiety and sleep. He also stated it is finally a relief to urinate clear, now that he has finished the Golyte bowel prep. He is anxious for the Am procedure so he can get to being "normal". Pt slept well all night
[2016-09-22] MEDS ORDERED: Lactated Ringer's 1,000 ML IV SCH ×2 (05:00→10:26)
[2016-09-22] MEDS: Piperacillin-Tazo 3.375 Gm Inj 3.375 GM in Dextrose 5% Minibag Plus 50 ML IV SCH ×4 (05:47→22:38)
[2016-09-22] MEDS: LORazepam 0.5 mg Tablet PO PRN ×2 (06:01→16:07)
--- NOTE | 2016-09-22 08:39 | NUR ---
next of kin Pt has asked significant other, Ciarra Bledsoe, to be the person to make decisions for him, if he is unable
[2016-09-22] MEDS: Pantoprazole 4 mg/mL 10 mL Inj IVPUSH SCH (08:41)
--- NOTE | 2016-09-22 09:36 | PCM.HPANE ---
Patient Data Date of Service: September 22, 2016 Surgeon Admitting Provider:Krissy Carmen DO Attending Provider:Krissy Carmen DO Primary Care Physician:Len Clemens MD Other Provider: Reason for Visit Diverticulitis With Abscess Ht/WT & BMI Height (Feet): 5 Height (Inches): 11.00 Weight (Kilograms): 82.500 Body Mass Index 26.20 Allergies Coded Allergies: No Known Allergies (Unverified , 09/18/16) Past Anesthesia History Anesthesia History: Denies:: Anesthesia Reactions, Fam Anesthesia Reaction, Fam Malignant Hypertherm, Malignant Hyperthermia Diabetes History Hx Diabetes?: No MRSA MRSA: No Medications Active Scripts Lactobacillus Rhamnosus GG (Culturelle)1 Each Capsule1 Capsule PO [facility] 10 Days Ref 0 Prov:Mora Khanna MD 09/27/15 Reported Medications Cyanocobalamin/FA/Pyridoxine (B Complex-Folic Acid Tablet)1 Each Tablet1 Each PO DAILY 09/18/16 Zinc Gluconate (Zinc)30 Mg [id number] Mg PO DAILY 09/18/16 Magnesium Oxide (Magnesium)250 Mg [id number] Mg PO 09/18/16 Cholecalciferol (Vitamin D3) (Vitamin D3)1,000 Unit Tab.chew1,000 Unit PO 09/18/16 Multivitamin (Multi Vitamin Daily)1 Each Tablet1 Each PO DAILY 30 Days Ref 0 09/26/15 History History of ENT Problems?: No HEENT History: Denies:: Abnormal Airway Denture Type: None Teeth Condition: Within Normal Limits Hx of Heart Problems?: No Cardiovascular History: Denies:: Congestive Heart Failure Hypertension Hx of Respiratory Problem?: No Respiratory History: Denies:: Tuberculosis Hx Neurologic Problems?: No Hx of GI Problems?: No Hx of Problems?: No Male Hx: Denies:: Prostate Problems Scrotal Mass Testicular Surgery Hx Musculoskeletal Problems?: No Musculoskeletal History: Denies:: Back Injury Musculoskeletal Trauma Hx of Psycho/Social Problems?: No Psycho Social History: Positive for:: Anxiety Hx Depression Denies:: Bipolar Disorder Hx Surgeries?: No Hx Any Other Health Problems?: No Other History: Denies:: Cancer Hospitalization Thyroid Disease History Blood Transfusions: Denies:: Blood Transfuse Reaction Blood Transfusions Hx Diabetes: No 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 Hx Alcohol Use: NoHx Substance Use: Yes (marijuana) Smoking Status: Never Smoker Stop/Bang Treated for Sleep Apnea?: No Do You Have a CPAP Machine?: No S-Snoring: Do You Snore Loudly: No T-Tired: feel tired, fatigued: No O-Obsered: Observed not breath: No P-Blood Pressure: treated: No B- Body Mass Index > 35 kg/m2: No A- Age over 50: No N- Neck Large Circumference: No G- Gender Male: Yes RAUL Total Score: 1 RAUL Risk Assessment: Low Risk, <3 Yes Risk Assessment Category Category 1A: Patient has history of documented sleep apnea, and HAS NOT received any narcotic, sedative or anesthesia administration during this stay. Category 1B: Patient has history of documented sleep apnea, and HAS received any narcotic , sedative or anesthesia administration during this stay Category 2: Patient has SUSPECTED Obstructive Sleep Apnea, and HAS received any narcotic , sedative or anesthesia administration during this stay. Category 3: Patient has SUSPECTED Obstructive Sleep Apnea and HAS NOT received narcotic, sedative or anesthesia administration during this stay. Category 4: Outpatient in Procedural Areas with known sleep apnea or who screen positive for High Risk via the STOP/BANG questionnaire. Exam Exam Vital Signs Vital Signs Date Time Temp Pulse Resp B/P Pulse Ox O2 Delivery O2 Flow Rate FiO2 09/22/16 05:00 36.8 70 16 116/73 96 Room Air General Appearance: Alert, Oriented X3, Cooperative, No Acute Distress HEENT/AIRWAY: MP 2 Lungs: Clear to Auscultation, Normal Air Movement Heart: Exam Unremarkable, Regular Rate/Rhythm, No Murmurs/Rubs/Gallops Meds/Labs/Diagnostics Labs Test 09/18/16 11:12 09/18/16 11:34 09/19/16 06:00 09/21/16 07:20 Urine Color Yellow (YELLOW) Urine Appearance Clear (CLEAR,HAZY) Urine pH 6.0 (5.0-8.0) Urine Specific Wilkinson 1.031 (1.003-1.035) Urine Protein Negativemg/dL (NEG,TRACE) Urine Glucose (UA) Negativemg/dL (NEGATIVE) Urine Ketones 40mg/dL (NEGATIVE) Urine Occult Blood Negative (NEGATIVE) Urine Nitrite Negative (NEGATIVE) Urine Bilirubin Negative (NEGATIVE) Urine Urobilinogen Normalmg/dL (NORMAL) Urine Leukocyte Esterase Negative (NEGATIVE) Urine RBC 0-2/hpf (0-2) Urine WBC 0-5/hpf (0-5) Urine Epithelial Cells Occasional/hpf (NONE-MOD) Urine Crystals None seen (NONE SEEN) Urine Bacteria None/hpf (NONE-FEW) Urine Hyaline Casts None/lpf (NONE) Urine Granular Casts None seen (NONE SEEN) Urine Waxy Casts None seen (NONE SEEN) Urine Red Blood Cell Casts None seen (NONE SEEN) Urine White Blood Cell Casts None seen (NONE SEEN) Urine Mucus Present (None Seen) Urine Trichomonas None seen (NONE SEEN) Urine Yeast None (NONE SEEN) Urinalysis Comment None Urine Culture Reflexed Not indicated Lipase 10U/L (13-60) Hold Giraldo Top Tube Received (Received) Prothrombin Time 10.6sec (8.1-12.5) Prothromb Time International Ratio 0.99ratio Carcinoembryonic Antigen 1.0ng/mL (0.0-4.7) White Blood Count 8.5th/mm3 (3.8-10.1) Red Blood Count 4.93mil/mm3 (4.40-5.80) Hemoglobin 14.9g/dL (13.8-17.2) Hematocrit 42.8% (41.0-50.0) Mean Corpuscular Volume 86.8fL (81-100) Mean Corpuscular Hemoglobin 30.2pg (27.0-35.0) Mean Corpuscular Hemoglobin Concent 34.8% (32.0-37.0) Red Cell Distribution Width 12.2% (12.3-15.4) Platelet Count 268bil/L (150-400) Neutrophils (%) (Auto) 81.8% (40-74) Lymphocytes (%) (Auto) 6.0% (14-46) Monocytes (%) (Auto) 9.8% (4-12) Eosinophils (%) (Auto) 1.3% (0-5) Basophils (%) (Auto) 0.6% (0-3) Sodium Level 143mEq/L (134-144) Potassium Level 4.9mEq/L (3.5-5.2) Chloride Level 104mEq/L (97-108) Carbon Dioxide Level 22mmol/L (18-29) Blood Urea Nitrogen 13mg/dL (6-24) Creatinine 0.92mg/dL (0.76-1.27) Estimat Glomerular Filtration Rate 95mL/min (>59) Glucose Level 82mg/dL (60-99) Calcium Level 9.1mg/dL (8.5-10.1) Magnesium Level 1.8mg/dL (1.6-2.6) Total Bilirubin 0.5mg/dL (0.0-1.2) Aspartate Amino Transf (AST/SGOT) 12U/L (0-50) Alanine Aminotransferase (ALT/SGPT) 11U/L (0-44) Alkaline Phosphatase 66U/L (25-150) Total Protein 6.3g/dL (6.4-8.4) Albumin 3.5g/dL (3.4-5.0) Plan Impression Patient chart reviewed, patient interviewed and anesthestic plan with risks, benefits, and alternatives discussed, and informed consent obtained. NPO per Anesth. Guidelines: Yes ASA Physical Status: ASA2 Mod Systemic Disease Anesthetic Plan: GA Bene/Risks/Altern/Consents: Yes HP Complete Prior to Induction: Yes Dago Singleton MD September 22, 2016 09:36
[2016-09-22] MEDS ORDERED: Lactated Ringer's 500 ML IV PRN (10:26)
[2016-09-22] MEDS ORDERED: EPHEDrine Sulfate 50 mg/mL Inj IVPUSH PRN (10:30)
[2016-09-22] MEDS ORDERED: hydrALAZINE 20 mg/mL Inj IVPUSH PRN (10:30)
[2016-09-22] MEDS ORDERED: Atropine 0.4 mg/mL Inj IVPUSH PRN (10:30)
[2016-09-22] MEDS ORDERED: Labetalol 5 mg/mL 4 mL Inj IV PRN (10:30)
[2016-09-22] MEDS ORDERED: fentaNYL-PF 50 mCg/mL 2 mL Inj IVPUSH PRN (10:30)
[2016-09-22] MEDS ORDERED: Ondansetron 2 mg/mL 2 mL Inj IVPUSH PRN (10:30)
[2016-09-22] MEDS ORDERED: Phenylephrine 10,000 mCg/mL Inj IVPUSH PRN (10:30)
[2016-09-22] MEDS ORDERED: HYDROmorphone 1 mg/mL Inj IVPUSH PRN (10:30)
[2016-09-22] MEDS ORDERED: MetoCLOpramide 5 mg/mL 2 mL Inj IVPUSH PRN ×2 (10:30→13:35)
[2016-09-22] MEDS ORDERED: Lactated Ringer's 1,000 ML IV ONE ×2 (10:55→14:36)
[2016-09-22] MEDS ORDERED: Bupivacaine-MPF 0.5% W/EPI 30 mL Inj INFILTRATE ONE (11:10)
[2016-09-22] MEDS ORDERED: HYDROmorphone 2 mg/mL Inj ONE (13:25)
[2016-09-22] MEDS ORDERED: Neostigmine 1 mg/mL 10 mL Inj ONE (13:25)
[2016-09-22] MEDS ORDERED: Glycopyrrolate 0.2 MG/ML 1mL Inj ONE (13:25)
[2016-09-22] MEDS ORDERED: Lidocaine PF 1% 30 mL Inj ONE (13:25)
[2016-09-22] MEDS ORDERED: EPHEDrine/NS 5 mg/mL 5 mL Syringe ONE (13:25)
[2016-09-22] MEDS ORDERED: Dexamethasone 4 mg/mL Inj ONE (13:25)
[2016-09-22] MEDS ORDERED: Rocuronium 10 mg/mL 5 mL Inj ONE (13:25)
[2016-09-22] MEDS ORDERED: Ondansetron 2 mg/mL 2 mL Inj ONE (13:25)
[2016-09-22] MEDS ORDERED: Propofol 10,000 mCg/mL 20 mL Inj ONE (13:25)
[2016-09-22] MEDS ORDERED: fentaNYL-PF 50 mCg/mL 2 mL Inj ONE (13:25)
[2016-09-22] MEDS ORDERED: Dextrose 5% 500 ML IV SCH (13:35)
--- NOTE | 2016-09-22 13:44 | PCM.ANEP1 ---
Post Anesthesia Phase 1 PACU Phase 1 Assessment Date of Service: September 22, 2016 Vital Signs 37.3 137/74 112 16 95% RA Anesthetic Administered: GA Level of Alertness: Awake, talking FIELDS's with Equal Strength: Yes Pain: No Pain Scale Score: 0 Nausea or Vomiting: No Cardiovascular Function and Hy: Yes Oxygen Delivery: Room Air Lungs: Clear to Auscultation, Normal Air Movement Complications: No Follow up Care: No Patient Instructions Provided: Yes Dago Singleton MD September 22, 2016 13:44
--- NOTE | 2016-09-22 14:01 | NUR ---
pt is in OR Addendum: 09/22/16 at 1401 by GEOVANI REAVES CNA Amended: Links added.
[2016-09-22] MEDS: Lactated Ringer's 1,000 ML IV SCH ×2 (15:18→23:35)
[2016-09-22] MEDS: HYDROmorphone PCA 0.2 mg/mL 30 mL Inj IV PRN ×2 (15:18→22:57)
--- NOTE | 2016-09-22 15:20 | NUR ---
returned to room 1030 from OR alert, mostly comfortable, denies nausea, 4 incisions, abd soft, BRETT with small amt sero-sang, VSS, afebrile
--- NOTE | 2016-09-22 16:43 | OP ---
[address] [address] OPERATIVE REPORT PATIENT: DEBRA HENDRICKSON : 1970 MR#: [id number] ADMIT: 09/18/2016 JOB ID: [id number] DATE OF SURGERY: PREOPERATIVE DIAGNOSIS(ES): Diverticulitis with abscess and colovesical fistula. POSTOPERATIVE DIAGNOSIS(ES): Diverticulitis with abscess and colovesical fistula. PROCEDURE: Laparoscopic sigmoid resection with takedown of colovesical fistula, reconstruction with coloproctostomy as a primary anastomosis, mobilization of splenic flexure, laparoscopic repair of bladder. SURGEON: Richar Neal MD ASSISTANTS: Kenya Weiss MD and Bari Sanford PA-C INDICATIONS: A 45-year-old male with history of recurrent diverticulitis who presents with a worsening colovesical fistula with symptoms worsening despite antibiotic treatment. He is brought to the operating room for surgery after a 2-day bowel prep and informed consent with the possibility of colostomy or diverting ileostomy discussed with the patient. FINDINGS: 1. nurses assistant was medically necessary for camera operation, retraction, EEA stapling and for safe and expeditious completion of the procedure. 2. The patient had very focal severe diverticulitis involving the left side of the bladder; however the proximal colon was without inflammation and the distal sigmoid and rectum were without inflammation. I therefore felt that given his adequate bowel prep, lack of proximal obstruction, and lack of diffuse inflammation and infection that a primary anastomosis was in his best interest. 3. We identified an area in the bladder that was repaired as described below. 4. Accessory spleen x2, incidental finding. DESCRIPTION OF PROCEDURE: The patient was brought to the operating room. SCOAP protocol was followed including surgical time-out. He was on therapeutic antibiotics. He was placed in low lithotomy after induction of general anesthetic, and the abdomen and perineum were prepped and draped in a sterile fashion. Surgical time-out was performed. We began with a Veress needle in the left upper quadrant and insufflated. I then placed an optical trocar by the umbilicus. The abdomen was surveyed. There was obvious inflammation to the left pelvis consistent with the preoperative diagnosis. We initially placed three additional ports and proceeded to take down some filmy adhesions of the small-bowel and the distal sigmoid colon in the pelvis. This allowed us to bring everything up out of the pelvis. There was no pelvic inflammation. We then mobilized the proximal sigmoid colon and descending colon and then began working towards the area of maximal inflammation. The colon was really plastered to the left pelvic sidewall. We identified the ureter proximally and its course. Nonetheless, we decided to stay on the colon and do primarily blunt dissection to bring the colon off the bladder and lateral sidewall. It appeared that we could do a primary anastomosis at this point, and I therefore mobilized the splenic flexure and descending colon widely. We continued our dissection in the area of maximal inflammation by the fistula and I elected to divide the colon just proximal to the inflammation and what was soft colon that had some asymptomatic diverticulosis. We then began dividing the mesentery, not getting too far down to the root of the mesentery but encompassing all thickened inflamed mesentery. Eventually with careful dissection, keeping in mind the course of the ureter and stained fairly close to the colon and doing most of the our dissection bluntly, we were able to bring the colon down off of the bladder where we could see not a gross hole into the bladder but clearly an area where it looked as if it was likely the colovesical fistula. We continued our dissection, freeing up the entire distal colon and then proceeded to take down the mesentery until we got to the rectosigmoid junction. This gave us several cm of fairly soft distal sigmoid colon and using the endoscopic stapler, amputated the rectal stump at the rectosigmoid junction using three firings of the 45 stapler. Our specimen was now freed up. This allowed us to inspect the proximal and distal ends. Again both of these appeared good. There was no sign of proximal obstruction and there was no sign of pelvic inflammation. I took down some of the avascular adhesions of the transverse colon to the omentum and this gave us more than enough length so that our anastomosis would not be under tension. At this point, we reviewed the course of the ureter, checked for hemostasis and then decided to proceed with our anastomosis. CO2 pneumoperitoneum was let out. We extended the supraumbilical incision in a transverse suprapubic fashion. I placed a wound protector. We now exteriorized the proximal colon, cut the staple line off and placed the 29 mm EEA anvil using 2-0 Prolene pursestring. We did place two interrupted silk Lemberts in the area of the colon that had a small serosal renea when we were cleaning it off. This was going to be outside of our staple line by approximately 5 mm. We now returned our anvil to the abdomen, twisted the wound protector close to allow us to reinsufflate and we reinsufflated for pneumoperitoneum. At this point, Dr. Weiss went below and after passing the dilators transanally, passed the EEA stapler. We brought the spike out, attached the anvil to the spike, and after checking that the intestine was oriented correctly, closed the anvil and completed the anastomosis. We had two good donuts that were sent separately proximal and distal. I occluded the proximal colon while Dr. Weiss used a rigid sigmoidoscope to insufflate the rectum. We had good insufflation across our anastomosis under saline and there was no sign of a leak. Satisfied that our primary anastomosis was intact, we discussed whether or not a diverting ileostomy would be in the patient's best interest. I felt that it would not be, and Dr. Weiss concurred. I therefore irrigated out the pelvis. At this point, Dr. Weiss left, but ROSALINE Mccall remained as we still required assistance for inspection of the bladder and repair of the bladder. OR staff filled the bladder up with 200 cc and then another 200 cc. There was no gross leakage out of the bladder but we did note that there had been insufflation gas in the Torres catheter bag consistent with continued injury to the bladder. I therefore repaired the bladder where we had peeled the colon off by taking interrupted 2-0 Vicryl and reapproximating what appeared to be the peritoneal covering and the outer muscular layer of the bladder using interrupted 2-0 Vicryl. I now elected to place a drain with the tip down in the pelvis and coming from the right side of the abdomen but with the drain going past the bladder repair, both to herald any anastomotic leak but more importantly, because to herald any bladder leakage. We secured the drain with a nylon suture. Prior to placing the drain, we did remove our specimen and I did open this on the back table eventually with findings consistent with diverticulitis without mucosal lesion worrisome for cancer. The other thing I should note that during the course of our dissection, we identified what appeared to be an accessory spleen that was sitting on the transverse mesocolon and additional accessory spleen that was sitting up attached to the diaphragm. These were left alone as they were incidental findings. Having completed the procedure, we inspected the abdomen for hemostasis once again, let our CO2 out. I then took out our ports and our wound protector. I now proceeded to close the peritoneum and then the fascia with 0 PDS at our suprapubic incision and then irrigated out the subcutaneous tissues with Betadine in our three remaining ports and the suprapubic incision. I may not have mentioned that to mobilize the splenic flexure, we did place an additional 5th laparoscopic port in the left upper quadrant using the site where we had placed our initial Veress needle. Wounds were all closed with absorbable suture including the suprapubic incision that was closed with interrupted absorbable suture. The patient was undraped and transferred to the recovery room extubated. There were no complications.
[2016-09-22 18:14] LABS: BASOPHILS % (AUTO) 0.1 % (0-3); EOSINOPHILS % (AUTO) 0.1 % (0-5); MONOCYTES % (AUTO) 6.5 % (4-12); Mean Corpuscular Hemoglobin 30.5 pg (27.0-35.0); Mean Corpuscular Volume 86.2 fL (81-100); NEUTROPHILS % (AUTO) 89.2 % (40-74); Platelet Count 263 bil/L (150-400)
[2016-09-22 18:37] LABS: INR 1.04 ratio
--- NOTE | 2016-09-22 19:38 | PCM.PNMED ---
Subjective Date of Service September 22, 2016 Subjective continues to have fever ,patient underwent laparascopy today,pain controlled with ASSOCIATE SALES MANAGER . Exam Vital Signs Vital Sign - Last Date Time Temp Pulse Resp B/P Pulse Ox O2 Delivery O2 Flow Rate FiO2 09/22/16 15:30 18 97 09/22/16 14:51 36.6 97 139/75 Room Air 09/22/16 14:38 2 Intake and Output 09/21/16 09/21/16 09/22/16 Cumulative From/Thru 15:00 23:00 07:00 09/18/16 10:54 - 09/22/16 07:00 Intake Total 0 ml 1500 ml 964 ml 34907 ml Output Total 950 ml 200 ml 5175 ml Balance -950 ml 1300 ml 964 ml 5342 ml Intake Oral 0 ml 1500 ml 600 ml 4100 ml IV Total 364 ml 6417 ml Output Urine Total 950 ml 200 ml 5175 ml # Voids 30 2 32 # Bowel Movements 2 7 Exam General no acute distress laying in bed conversing pleasantly HEENT: Normocephalic atraumatic Heart: Regular rate and rhythm no S3 or S4 sounds Lungs clear to auscultation no crackles or wheezes Abdomen nondistended ,tender ,surgical drain in place ,cleanly dressed surgical site . Bowel sounds are present Extremities negative for edema Vascular: pedal pulses palpable neck negative for thyromegaly, trachea central, negative for JVD Psych: Negative for anxiety and agitation Neuro: No focal deficits IVs and Medications Medications Reviewed: Medications were reviewed in detail Lab and Diagnostics Result Diagram: 09/22/[id number] X-Rays, CTs and MRIs PROCEDURE: CT ABDOMEN AND PELVIS WITH CONTRAST ([id number]) INDICATIONS: llq pain IMPRESSION: 1. Severe diverticulitis of the proximal sigmoid colon associated with intramural abscess extending from the colonic wall into the urinary bladder wall. Findings indicate colovesical fistula. 2. Normal appendix. Dictated by: Ti Parks M.D. on 09/18/2016 at 13:27 Approved by: Ti Parks M.D. on 09/18/2016 at 13:30 Additional Diagnostics DATE OF SURGERY: PREOPERATIVE DIAGNOSIS(ES): Diverticulitis with abscess and colovesical fistula. POSTOPERATIVE DIAGNOSIS(ES): Diverticulitis with abscess and colovesical fistula. PROCEDURE: Laparoscopic sigmoid resection with takedown of colovesical fistula, reconstruction with coloproctostomy as a primary anastomosis, mobilization of splenic flexure, laparoscopic repair of bladder. SURGEON: Richar Neal MD ASSISTANTS: Kenya Weiss MD and Bari Sanford PA-C INDICATIONS: A 45-year-old male with history of recurrent diverticulitis who presents with a worsening colovesical fistula with symptoms worsening despite antibiotic treatment. He is brought to the operating room for surgery after a 2-day bowel prep and informed consent with the possibility of colostomy or diverting ileostomy discussed with the patient. FINDINGS: 1. assistant statistician was medically necessary for camera operation, retraction, EEA stapling and for safe and expeditious completion of the procedure. 2. The patient had very focal severe diverticulitis involving the left side of the bladder; however the proximal colon was without inflammation and the distal sigmoid and rectum were without inflammation. I therefore felt that given his adequate bowel prep, lack of proximal obstruction, and lack of diffuse inflammation and infection that a primary anastomosis was in his best interest. 3. We identified an area in the bladder that was repaired as described below. 4. Accessory spleen x2, incidental finding. 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 #1 diverticulitis complicated by abscess and colovesical fistula, present on admission -s/p Laparoscopic sigmoid resection with takedown of colovesical fistula, reconstruction with coloproctostomy as a primary anastomosis, mobilization of splenic flexure, laparoscopic repair of bladder 09/22/16 --continue Zosyn antibiotics -- Nothing by mouth diet, IV hydration, Zofran for nausea, Protonix for GERD prophylaxis -- Pain control with dilaudid ASSOCIATE SALES MANAGER -- continue IV fluids -ID Dr Donald consulted to determine duration and type of antibiotics #2 colovesicular fistula -- Surgeries following -- patient happy that he did not require temporary colostomy and indwelling springer CODE STATUS: Full code Alternate decision-maker Derick [phone] Disposition: pending clinical course VTE Prophylaxis: Sub-Q Heparin (Unfractionated) VTE Mechanical Devices: Intermittant Pneumatic CD Resuscitation Status: CPR: Attempt Resuscitation Shmuel Jefferson MD September 22, 2016 19:38
--- NOTE | 2016-09-22 20:00 | CONS ---
[address] [address] CONSULTATION REPORT PATIENT: DBERA HENDRICKSON : 1970 MR#: [id number] ADMIT: 09/18/2016 JOB ID: [id number] INFECTIOUS DISEASE CONSULTATION: DATE OF SERVICE: 09/22/[address] Jefferson for this timely consultation. REASON FOR CONSULTATION: Colovesicular fistula due to diverticulitis. HISTORY OF PRESENT ILLNESS: The patient is a 45-year-old gentleman, who is usually extremely healthy but he has had three episodes of diverticulitis in the last 12 months. Last September, he was admitted with diverticulitis with micro perforations and got better with antibiotics. He was subsequently treated as an outpatient six months later in about March for recurrence of his diverticulitis which was treated with oral antibiotics and conservative measures and got better. He was admitted however on September 18 of this week with a 3rd episode of severe diverticulitis. He reported that he had one day of severe abdominal pain when he was admitted in association with constipation and cramps. When he first came in, he said that he did not have any air or particulates in his urine nor did he have any fevers and chills, but subsequently on September 20 or , while already admitted to the hospital, he did develop fevers, chills, and pneumaturia or air in his urine. Because of his downhill course, he was taken to the operating room today for definitive surgical treatment of his colovesicular fistula and diverticular abscess. The patient is just now postop and a little bit groggy but he is able to provide that basic history. His fiancee who is with him in the room is also able to fill in some of the details. The patient reports for a couple decades he has had trouble with defecation and chronic constipation. He believes this is what contributed to his three very significant episodes of diverticulitis in the last 12 months or so. He says that initially he had a very poor diet early in his life, but he now has a very diverticular friendly diet and he is disappointed that in spite of these dietary and lifestyle modifications that he still got sick. At this point, he has no pulmonary symptoms and he has not had any throughout this admission. He denies any chronic underlying immunosuppressive or debilitating diseases. PAST MEDICAL HISTORY: 1. Recurrent diverticulitis in September 2015, March 2016, and September 2016. 2. History of hemorrhoids. 3. History of rhinoplasty. SOCIAL HISTORY: The patient does not smoke cigarettes nor does he drink alcohol. He lives with his children and fiancee in the [facility]. He occasionally smokes marijuana. 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 FAMILY HISTORY: Positive for diverticulitis and colon cancer but there is no family history of tuberculosis in first or second-degree relatives. REVIEW OF SYSTEMS: The patient states he has had no headache, no visual change. No sore throat or trouble swallowing. No swollen lymph nodes or stiff neck. No significant cough chest pain, palpitations, or shortness of breath. He has had nausea in association with his left lower quadrant cramping pain as well as his severe constipation and eventually pneumaturia. He denies any problems with his joints or any skin rash. Remainder of the review of systems negative. PHYSICAL EXAMINATION: Reveals an afebrile gentleman, temperature 36.6, pulse 97, respiratory 16, blood pressure 139/75. He is saturating well on room air at this point despite being just a few hours postop. He is a bit groggy but is certainly awake, alert and oriented and able to give a reasonably good history. There is no evidence for head trauma. Sinuses nontender. Oral cavity without thrush or hairy leukoplakia. Neck is supple without adenopathy. Lungs are clear. Cardiac tones regular rate and rhythm without any murmur. His abdomen is relatively soft. I do not palpate too firmly however as he just had surgery within the past couple of hours. [place] drain is protruding from the area of the surgery. He has a Torres catheter. There is no notable suprapubic, penile or scrotal abnormalities. His joints are without synovitis. He has no skin rash. He has excellent motor strength. No evidence of any neurologic problem. LABORATORY DATA: Labs include a white count of 8500, basically normal diff except for 82% segs that was done this morning preop. Creatinine 0.92. CEA is 1, which is normal. Albumin 3.5. LFTs normal. Urinalysis without white cells. Blood cultures are negative. IMAGING: The abdominal CT on admission showed severe diverticulitis of the proximal sigmoid colon with abscess extending to the bladder wall and probable colovesicular fistula. IMPRESSION: This is an unfortunate gentleman who is otherwise quite healthy, has had three episodes of significant diverticulitis in the last 12 months. This time he presented with his worst episode ever both radiographically and clinically. Though we did not come in with fevers, chills or pneumaturia, he developed all of that here in the hospital and therefore went to surgery today for the definitive treatment. He is on Zosyn as his sole antibiotic, and I think that is quite reasonable at this point, given that it covers all the likely krystal one would expect with a diverticular abscess. I do not think that we necessarily need to add antifungal therapy at this time. RECOMMENDATIONS: 1. Will continue with Zosyn. 2. Will continue to follow his blood cultures and any other cultures which may have been obtained in the OR but are not yet recorded in the computerized medical record. 3. Will adjust his antibiotics as needed and prepare for discharge on oral antibiotics for a short course of therapy when he is ready for discharge. Thank you very much for this consult.
--- NOTE | 2016-09-22 23:37 | NUR ---
Pain/activity Pt alert, ROTARY FURNACE TENDER dilaudid effective. Pt states pain is 2/10 and only because he feels pressure. Dressing intact to lower abdomen and lap sites with no drainage. Encouraged Pt to cough and deep breathe and to brace with a pillow. Remained in bed this shift, at bedside providing care. Pt tolerating clear liquids well. Has not passed gas yet.
[2016-09-23] VITALS (8 sets, daily range): BP systolic 104–123; BP diastolic 67–82; PULSE 76–89; RESP 14–18; O2SAT 95–98
[2016-09-23] MEDS: Heparin 5,000 Unit/mL Inj SUBQ SCH ×3 (00:38→16:30)
[2016-09-23] MEDS: Piperacillin-Tazo 3.375 Gm Inj 3.375 GM in Dextrose 5% Minibag Plus 50 ML IV SCH (05:53)
[2016-09-23 06:04] LABS: BASOPHILS % (AUTO) 0.2 % (0-3); EOSINOPHILS % (AUTO) 0.4 % (0-5); MONOCYTES % (AUTO) 12.2 % (4-12); Mean Corpuscular Hemoglobin 29.9 pg (27.0-35.0); NEUTROPHILS % (AUTO) 71.2 % (40-74); Platelet Count 259 bil/L (150-400)
--- NOTE | 2016-09-23 07:27 | PCM.PNSURG ---
Subjective Date of Service: September 23, 2016 Date of Service: September 23, 2016 Visit Information: Reason for Visit Diverticulitis With Abscess Surgery/Surgery Date 09/22/2016 Post-Op Day # 1 Date of Admission: September 18, 2016 at 14:45 Hospital Day # 6 Subjective: Overnight did well. His O2 sats dropped slightly requiring 1L via NC to maintain sats in the mid to high 90's. His pain is well controlled with his RN MANAGED CARE. He denies any N/V, pain, fevers/chills, CP or SOB. He has not passed flatus though is making urine through springer cath. Tolerating clear liquids. Leukocytosis has resolved, WBC 9.4 this morning. Afebrile and vital signs stable. Objective Vital Sign- Last 8 Hours Date Time Temp Pulse Resp B/P Pulse Ox O2 Delivery O2 Flow Rate FiO2 09/23/16 05:59 16 95 09/23/16 05:00 36.5 87 18 122/76 96 Room Air 09/23/16 04:15 14 95 09/23/16 00:46 Supplement Oxygen 09/22/16 23:55 14 95 Intake and Output- Last 8 Hour 09/23/16 Cumulative From/Thru 07:00 09/18/16 10:54 - 09/23/16 05:59 Intake Total 2132 ml 06388 ml Output Total 820 ml 6695 ml Balance 1312 ml 7834 ml Intake Oral 600 ml 5380 ml IV Total 1532 ml 9149 ml Output Urine Total 720 ml 6595 ml Drainage Total 100 ml 100 ml # Voids 32 # Bowel Movements 7 General: Alert, Oriented X3, Cooperative Neck: Supple Lungs: Clear to Auscultation, Normal Air Movement Heart: Exam Unremarkable, Regular Rate/Rhythm Abdomen: Benign, Appropriately tender SURGICAL WOUND : Wound Location/Description Trocar sites show no evidence of erythema, swelling or warmth. Appropriately tender to palpation. Wound General Appearence: Intact, No Erythema, No Discharge, No Inflammatory Changes Dressing & Drainage Status: Intact Wound Drainage Type: BRETT Drain #1 (approximatly 100mL serosanguinous drainage over the last 24hrs.) Result Diagram: 09/23/16 0545 09/23/1645 Diagnostics: . CT ABDOMEN AND PELVIS WITH CONTRAST IMPRESSION: 1. Severe diverticulitis of the proximal sigmoid colon associated with intramural abscess extending from the colonic wall into the urinary bladder wall. Findings indicate colovesical fistula. 2. Normal appendix. Dictated by: Ti Parks M.D. on 09/18/2016 at 13:27 Assessment & Plan Impression Assessment and Plan: 1. Diverticulitis with abscess and colovesical fistula. - status post Laparoscopic sigmoid resection with takedown of colovesical fistula, reconstruction with coloproctostomy as a primary anastomosis, mobilization of splenic flexure, laparoscopic repair of bladder. Post Op day 1. - Leukocytosis resolved - ID following, recommendations appreciated - Continue ABX Zosyn - Continue LR 100mL/hr - RN MANAGED CARE Dilaudid, will begin to wean this later this afternoon with anticipated transition to oral pain meds tomorrow or the next day - Continue with springer cath - Reglan, Zofran PRN - Continue diet of clear liquids - Encourage Pt to sit up in bed with feet on floor for today Problems: VTE Prophylaxis: Sub-Q Heparin (Unfractionated) Resuscitation Status: CPR: Attempt Resuscitation KYLAH FUENTES DO September 23, 2016 06:29
[2016-09-23] MEDS: HYDROmorphone PCA 0.2 mg/mL 30 mL Inj IV PRN (07:58)
--- NOTE | 2016-09-23 08:14 | NUR ---
Social Work- Readiness for Discharge Data: EMR reviewed. Pt is on day 4 of hospitalization for diverticulitis with abscess per H&P. Pt is POD 1. ID is following, pt likely to need ID abx at discharge. Pt's diet continues to be clear liquids. Per RN notes, pt is ambulating independently in room. 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 No anticipated discharge needs. SW will continue to follow. 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 No anticipated discharge needs. SW will continue to follow. [place] Gre[place]
[2016-09-23] MEDS: Pantoprazole 4 mg/mL 10 mL Inj IVPUSH SCH (08:17)
--- NOTE | 2016-09-23 08:45 | PCM.PNSURG ---
Subjective Visit Information: Reason for Visit Diverticulitis With Abscess Surgery/Surgery Date Post-Op Day # Date of Admission: September 18, 2016 at 14:45 Hospital Day # Subjective: Stable overnight. Vitals normal. Awake and alert, tolerating CLD. WBC decreasing compared to yesterday afternoon. Excellent UOP. JOSE 100 ml serosanguinous fluid Objective Vital Sign- Last 8 Hours Date Time Temp Pulse Resp B/P Pulse Ox O2 Delivery O2 Flow Rate FiO2 09/23/16 08:10 16 95 09/23/16 05:59 16 95 09/23/16 05:00 36.5 87 18 122/76 96 Room Air 09/23/16 04:15 14 95 09/23/16 00:46 Supplement Oxygen Intake and Output- Last 8 Hour 09/23/16 Cumulative From/Thru 07:00 09/18/16 10:54 - 09/23/16 05:59 Intake Total 2132 ml 42547 ml Output Total 820 ml 6695 ml Balance 1312 ml 7834 ml Intake Oral 600 ml 5380 ml IV Total 1532 ml 9149 ml Output Urine Total 720 ml 6595 ml Drainage Total 100 ml 100 ml # Voids 32 # Bowel Movements 7 General: Alert, Oriented X3, Cooperative Abdomen: Soft, Appropriately tender, Other (jose drain with serosanguinous fluid) Result Diagram: 09/23/16 0545 09/23/16 0545 Assessment & Plan Impression POD1 lap sigmoid colectomy doing well Problems: Plan FLD Miralax Oral analgesia Ambulation Await return of bowel function Continue JOSE drain VTE Prophylaxis: Sub-Q Heparin (Unfractionated) Resuscitation Status: CPR: Attempt Resuscitation Kenya Weiss MD September 23, 2016 08:45
[2016-09-23] MEDS: Lactated Ringer's 1,000 ML IV SCH ×2 (09:35→19:35)
[2016-09-23] MEDS: Polyethylene Glycol (PEG) 17 Gm Powder PO SCH (13:05)
--- NOTE | 2016-09-23 13:12 | NUR ---
NUTRITION FOLLOW UP: ASSESS: 45 YO male admitted for abd. pain with diverticulitis with microperforation; now s/p lap sigmoid colectomy, diet advanced to full liquids, awaiting bowel function return. PMHx: Diverticulitis, with microperforation (september 2015), hemorrhoids, rhinoplasty. LABS: Reviewed. MEDS: Reviewed. GI: BM x 2 09/22 CURRENT WT: 88.7 kg. DIET: Full Liquids (+Impact). PO 50% EST. NEEDS: 2804-7524 kcals (25-30 kcals/kg BW), 105-130 g protein (1.2-1.5 g/kg BW) NUTRITION DIAGNOSIS: 1.) Inadequate oral intake related to decreased ability to consume sufficient energy as evidenced by current NPO / clear liquid status x 3 days--- IMPROVING. Diet advanced 2.) Altered GI function related to alteration in GI tract structure and/or function as evidenced by diverticulitis with current colovesical fistula---IMPROVING, s/p surgery, awaiting bowel function return. NUTRITION INTERVENTION: 1.) Supplements (Impact Adv. Recovery) added to meal trays to promote adequate kcal/protein intake s/p surgery. MONITOR / EVAL: Diet advancement / tolerance, abs, GI and nutritional status. Follow per moderate nutritional risk guidelines.
[2016-09-23] MEDS ORDERED: Ketorolac 15 mg/mL Inj IVPUSH ONE (16:35)
--- NOTE | 2016-09-23 16:37 | PCM.PNMED ---
Subjective Date of Service September 23, 2016 Subjective Patient feeling better overall. Ambulating on hallway. She discontinued. Antibiotics discontinued per surgery recommendation. Exam Vital Signs Vital Sign - Last Date Time Temp Pulse Resp B/P Pulse Ox O2 Delivery O2 Flow Rate FiO2 09/23/16 14:37 36.7 76 18 104/67 95 Room Air 09/22/16 14:38 2 Intake and Output 09/22/16 09/22/16 09/23/16 Cumulative From/Thru 15:00 23:00 07:00 09/18/16 10:54 - 09/23/16 05:59 Intake Total 1200 ml 680 ml 2132 ml 17604 ml Output Total 100 ml 600 ml 820 ml 6695 ml Balance 1100 ml 80 ml 1312 ml 7834 ml Intake Oral 680 ml 600 ml 5380 ml IV Total 1200 ml 1532 ml 9149 ml Output Urine Total 100 ml 600 ml 720 ml 6595 ml Drainage Total 100 ml 100 ml # Voids 32 # Bowel Movements 7 Exam General no acute distress,HEENT: Normocephalic atraumatic Heart: Regular rate and rhythm no S3 or S4 sounds Lungs clear to auscultation no crackles or wheezes Abdomen nondistended ,tender ,surgical drain in place ,cleanly dressed surgical site . Bowel sounds are present Extremities negative for edema Vascular: pedal pulses palpable neck negative for thyromegaly, trachea central, negative for JVD Psych: Negative for anxiety and agitation Neuro: No focal deficits IVs and Medications Medications Reviewed: Medications were reviewed in detail Lab and Diagnostics Result Diagram: 09/23/16 0545 09/23/16 0545 X-Rays, CTs and MRIs PROCEDURE: CT ABDOMEN AND PELVIS WITH CONTRAST (PNL-7102) INDICATIONS: llq pain IMPRESSION: 1. Severe diverticulitis of the proximal sigmoid colon associated with intramural abscess extending from the colonic wall into the urinary bladder wall. Findings indicate colovesical fistula. 2. Normal appendix. Dictated by: Ti Parks M.D. on 09/18/2016 at 13:27 Approved by: Ti Parks M.D. on 09/18/2016 at 13:30 Additional Diagnostics DATE OF SURGERY: PREOPERATIVE DIAGNOSIS(ES): Diverticulitis with abscess and colovesical fistula. POSTOPERATIVE DIAGNOSIS(ES): Diverticulitis with abscess and colovesical fistula. PROCEDURE: Laparoscopic sigmoid resection with takedown of colovesical fistula, reconstruction with coloproctostomy as a primary anastomosis, mobilization of splenic flexure, laparoscopic repair of bladder. SURGEON: Richar Neal MD ASSISTANTS: Kenya Weiss MD and Bari Sanford PA-C INDICATIONS: A 45-year-old male with history of recurrent diverticulitis who presents with a worsening colovesical fistula with symptoms worsening despite antibiotic treatment. He is brought to the operating room for surgery after a 2-day bowel prep and informed consent with the possibility of colostomy or diverting ileostomy discussed with the patient. FINDINGS: 1. actuarial assistant was medically necessary for camera operation, retraction, EEA stapling and for safe and expeditious completion of the procedure. 2. The patient had very focal severe diverticulitis involving the left side of the bladder; however the proximal colon was without inflammation and the distal sigmoid and rectum were without inflammation. I therefore felt that given his adequate bowel prep, lack of proximal obstruction, and lack of diffuse inflammation and infection that a primary anastomosis was in his best interest. 3. We identified an area in the bladder that was repaired as described below. 4. Accessory spleen x2, incidental finding. 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 #1 diverticulitis complicated by abscess and colovesical fistula, present on admission -s/p Laparoscopic sigmoid resection with takedown of colovesical fistula, reconstruction with coloproctostomy as a primary anastomosis, mobilization of splenic flexure, laparoscopic repair of bladder 09/22/16 -- Surgeon discontinued Zosyn antibiotics . Reportedly infection very localized and completely resected -- Advised diet as tolerated, IV hydration, Zofran for nausea, Protonix for GERD prophylaxis -- Pain control with dilaudid SALES AND MARKETING COORDINATOR , discontinued SALES AND MARKETING COORDINATOR today -- continue IV fluids -ID Dr Donald consulted #2 colovesicular fistula --as above -We will keep Torres , await surgical recommendation CODE STATUS: Full code Alternate decision-maker markell neetu Lafleur [phone] Disposition: pending clinical course VTE Prophylaxis: Sub-Q Heparin (Unfractionated) VTE Mechanical Devices: Intermittant Pneumatic CD Resuscitation Status: CPR: Attempt Resuscitation Shmuel Jefferson MD September 23, 2016 16:37
--- NOTE | 2016-09-23 19:30 | NUR ---
Temp / Activity At shift change, pt reports feeling diaphoretic. Temp 99.6. Pt encouraged to cough and deep breathing, use pillow for splinting and increase activity. Pt was up w/ staff ambulating hallways x2 this shift. Bed down and locked, call light w/in reach and used appropriately. Torres patent and draining to gravity. BRETT to suction serous/sang fluids.
[2016-09-24] MEDS: Heparin 5,000 Unit/mL Inj SUBQ SCH ×3 (01:03→15:50)
[2016-09-24 05:15] VITALS: BP 105/66; PULSE 68; RESP 20; O2SAT 95
[2016-09-24] MEDS: Lactated Ringer's 1,000 ML IV SCH ×2 (05:35→15:35)
[2016-09-24 05:54] LABS: BASOPHILS % (AUTO) 0.5 % (0-3); EOSINOPHILS % (AUTO) 3.5 % (0-5); MONOCYTES % (AUTO) 11.6 % (4-12); Mean Corpuscular Hemoglobin 30.1 pg (27.0-35.0); Mean Corpuscular Volume 87.4 fL (81-100); NEUTROPHILS % (AUTO) 66.9 % (40-74); Platelet Count 287 bil/L (150-400)
--- NOTE | 2016-09-24 06:19 | NUR ---
Afebrile overnight. Lungs sound clear. Sats stable. reinforced use of I.S. at bedside. Ambulated loop of evans at HS and is now passing flatus. No nausea overnight. Reports good pain control with 1-2 Roxicodne Q 4hrs PRN.
[2016-09-24] MEDS: Piperacillin-Tazo 3.375 Gm Inj 3.375 GM in Dextrose 5% Minibag Plus 50 ML IV SCH ×2 (09:21→17:29)
[2016-09-24] MEDS: Pantoprazole 4 mg/mL 10 mL Inj IVPUSH SCH (09:21)
[2016-09-24] MEDS: Polyethylene Glycol (PEG) 17 Gm Powder PO SCH (09:22)
--- NOTE | 2016-09-24 12:20 | PCM.PNMED ---
Subjective Date of Service September 24, 2016 Subjective Afebrile now. Ambulating well. Diet advanced Exam Vital Signs Vital Sign - Last Date Time Temp Pulse Resp B/P Pulse Ox O2 Delivery O2 Flow Rate FiO2 09/24/16 05:15 36.8 68 20 105/66 95 Room Air 09/22/16 14:38 2 Intake and Output 09/23/16 09/23/16 09/24/16 Cumulative From/Thru 14:59 22:59 06:59 09/18/16 10:54 - 09/24/16 06:16 Intake Total 2018 ml 600 ml 93648 ml Output Total 1940 ml 1610 ml 85633 ml Balance 78 ml -1010 ml 6902 ml Intake Oral 1400 ml 600 ml 7380 ml IV Total 618 ml 9767 ml Output Urine Total 1900 ml 1600 ml 54252 ml Drainage Total 40 ml 10 ml 150 ml # Voids 32 # Bowel Movements 7 Exam General no acute distress,HEENT: Normocephalic atraumatic Heart: Regular rate and rhythm no S3 or S4 sounds Lungs clear to auscultation no crackles or wheezes Abdomen nondistended ,tender ,surgical drain in place ,cleanly dressed surgical site . Bowel sounds are present. Torres in place Extremities negative for edema Vascular: pedal pulses palpable neck negative for thyromegaly, trachea central, negative for JVD Psych: Negative for anxiety and agitation Neuro: No focal deficits IVs and Medications Medications Reviewed: Medications were reviewed in detail Lab and Diagnostics Result Diagram: 09/24/1651409/24/16514 X-Rays, CTs and MRIs PROCEDURE: CT ABDOMEN AND PELVIS WITH CONTRAST ([id number]) INDICATIONS: llq pain IMPRESSION: 1. Severe diverticulitis of the proximal sigmoid colon associated with intramural abscess extending from the colonic wall into the urinary bladder wall. Findings indicate colovesical fistula. 2. Normal appendix. Dictated by: Ti Parks M.D. on 09/18/2016 at 13:27 Approved by: Ti Parks M.D. on 09/18/2016 at 13:30 Additional Diagnostics DATE OF SURGERY: PREOPERATIVE DIAGNOSIS(ES): Diverticulitis with abscess and colovesical fistula. POSTOPERATIVE DIAGNOSIS(ES): Diverticulitis with abscess and colovesical fistula. PROCEDURE: Laparoscopic sigmoid resection with takedown of colovesical fistula, reconstruction with coloproctostomy as a primary anastomosis, mobilization of splenic flexure, laparoscopic repair of bladder. SURGEON: Richar Neal MD ASSISTANTS: Kenya Weiss MD and Bari Sanford PA-C INDICATIONS: A 45-year-old male with history of recurrent diverticulitis who presents with a worsening colovesical fistula with symptoms worsening despite antibiotic treatment. He is brought to the operating room for surgery after a 2-day bowel prep and informed consent with the possibility of colostomy or diverting ileostomy discussed with the patient. FINDINGS: 1. certified ophthalmic surgical assistant was medically necessary for camera operation, retraction, EEA stapling and for safe and expeditious completion of the procedure. 2. The patient had very focal severe diverticulitis involving the left side of the bladder; however the proximal colon was without inflammation and the distal sigmoid and rectum were without inflammation. I therefore felt that given his adequate bowel prep, lack of proximal obstruction, and lack of diffuse inflammation and infection that a primary anastomosis was in his best interest. 3. We identified an area in the bladder that was repaired as described below. 4. Accessory spleen x2, incidental finding. 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 #1 diverticulitis complicated by abscess and colovesical fistula, present on admission -s/p Laparoscopic sigmoid resection with takedown of colovesical fistula, reconstruction with coloproctostomy as a primary anastomosis, mobilization of splenic flexure, laparoscopic repair of bladder 09/22/16 -- Dr weiss initially discontinued Zosyn 09/23 . Reportedly infection very localized and completely resected. Restarted by Dr Neal today .plan to discharge on oral antibiotics for a few more days -- Advised diet as tolerated, IV hydration, Zofran for nausea, Protonix for GERD prophylaxis -- Pain control with percocet , discontinued SETTLEMENT PROCESSOR -- continue IV fluids -ID Dr Donald on board #2 colovesicular fistula --as above -We will keep Torres for at least 1 week, patient will be discharged with Torres per sx.. He also needs retrograde pyelogram in few day per surgery CODE STATUS: Full code Alternate decision-maker Derick [phone] Disposition: Possible discharge in 2-3 days with by mouth antibiotics and indwelling Torres. VTE Prophylaxis: Sub-Q Heparin (Unfractionated) VTE Mechanical Devices: Venous Foot Pump Resuscitation Status: CPR: Attempt Resuscitation Shmuel Jefferson MD September 24, 2016 12:20
--- NOTE | 2016-09-24 13:01 | PROG NOTE ---
[address] [address] PROGRESS NOTE PATIENT: DEBRA HENDRICKSON : 1970 MR#: [id number] ADMIT: 09/18/2016 JOB ID: [id number] DATE: Postop day two sigmoid resection with takedown of colovesical fistula. He has remained afebrile with a T-max of 37.6, stable vital signs. Shola-La drain is serosanguineous and put out 140 cc yesterday. He is passing gas, no stool. Says that his incisional pain is adequately controlled with oral antibiotics, though it hurts to cough. EXAMINATION: His incisions are healing well. His Torres catheter remains in place. LABORATORY DATA: White count of 8.9, hematocrit 37.4. Chemistries are normal. Albumin is 2.9. IMPRESSION AND PLAN: Doing well. We will keep him on full liquids. We will increase his activity. I will continue his Zosyn given his colovesical fistula and contained abscess at the time of surgery at least through the weekend.
[2016-09-24 13:42] VITALS: BP 102/70; PULSE 73; RESP 18; O2SAT 97
--- NOTE | 2016-09-24 14:17 | NUR ---
Pain management/activity Pt. reports pain at tolerable level today with 5-10 mg oxycodone Q4. Encouraged to ambulate. Pt agrees to walk the halls x3 today. Walked 3 laps this morning and reports it helps with pain. Will continue to monitor.
[2016-09-24 21:08] VITALS: BP 113/75; PULSE 69; RESP 18; O2SAT 95
[2016-09-25] MEDS: Heparin 5,000 Unit/mL Inj SUBQ SCH ×3 (00:31→16:22)
[2016-09-25] MEDS: Piperacillin-Tazo 3.375 Gm Inj 3.375 GM in Dextrose 5% Minibag Plus 50 ML IV SCH ×3 (00:31→17:14)
[2016-09-25] MEDS: Lactated Ringer's 1,000 ML IV SCH (01:35)
--- NOTE | 2016-09-25 05:00 | NUR ---
Pain PRN oxi given Q4 for pain and scheduled tylenol provides adequate relief for pain this shift. Significant other in room. BRETT draining small amount serosanguinous fluid. Torres patent and draining to gravity. IV abx running and saline TKO between doses. Pt is independent in room, calls appropriately for assistance. Care continues
[2016-09-25 06:19] VITALS: BP 107/70; PULSE 67; RESP 18; O2SAT 96
[2016-09-25] MEDS: Pantoprazole 4 mg/mL 10 mL Inj IVPUSH SCH (08:06)
[2016-09-25] MEDS: Polyethylene Glycol (PEG) 17 Gm Powder PO SCH (08:07)
[2016-09-25] MEDS ORDERED: 0.9% Sodium Chloride 250 ML ONE (10:56)
--- NOTE | 2016-09-25 13:08 | PCM.PNMED ---
Subjective Date of Service September 25, 2016 Subjective pt is doing well, denied pain, Exam Vital Signs Vital Sign - Last Date Time Temp Pulse Resp B/P Pulse Ox O2 Delivery O2 Flow Rate FiO2 09/25/16 06:19 36.6 67 18 107/70 96 Room Air 09/22/16 14:38 2 Intake and Output 09/24/16 09/24/16 09/25/16 Cumulative From/Thru 15:00 23:00 07:00 09/18/16 10:54 - 09/25/16 06:19 Intake Total 1752 ml 636 ml 35324 ml Output Total 2255 ml 1203 ml 70812 ml Balance -503 ml -567 ml 5832 ml Intake Oral 1689 ml 636 ml 9705 ml IV Total 63 ml 9830 ml Output Urine Total 2250 ml 1200 ml 49600 ml Drainage Total 5 ml 3 ml 158 ml # Voids 32 # Bowel Movements 7 Exam NAD, comfortably laying down on the bed no JVD, MMM, no LAD RRR, nl s1, s2 no mrg CTAB, no w,c S,distended, mildly tender on surgical site,normoactive BS+ warm, no edema, pulses 2/2 BRETT drain, springer in place IVs and Medications Medications Reviewed: Medications were reviewed in detail Lab and Diagnostics Result Diagram: 09/24/1651409/24/16514 X-Rays, CTs and MRIs PROCEDURE: CT ABDOMEN AND PELVIS WITH CONTRAST (PNL-7102) INDICATIONS: llq pain IMPRESSION: 1. Severe diverticulitis of the proximal sigmoid colon associated with intramural abscess extending from the colonic wall into the urinary bladder wall. Findings indicate colovesical fistula. 2. Normal appendix. Dictated by: Ti Parks M.D. on 09/18/2016 at 13:27 Approved by: Ti Parks M.D. on 09/18/2016 at 13:30 Additional Diagnostics DATE OF SURGERY: PREOPERATIVE DIAGNOSIS(ES): Diverticulitis with abscess and colovesical fistula. POSTOPERATIVE DIAGNOSIS(ES): Diverticulitis with abscess and colovesical fistula. PROCEDURE: Laparoscopic sigmoid resection with takedown of colovesical fistula, reconstruction with coloproctostomy as a primary anastomosis, mobilization of splenic flexure, laparoscopic repair of bladder. SURGEON: Richar Neal MD ASSISTANTS: Kenya Weiss MD and Bari Sanford PA-C INDICATIONS: A 45-year-old male with history of recurrent diverticulitis who presents with a worsening colovesical fistula with symptoms worsening despite antibiotic treatment. He is brought to the operating room for surgery after a 2-day bowel prep and informed consent with the possibility of colostomy or diverting ileostomy discussed with the patient. FINDINGS: 1. assistant inventory manager was medically necessary for camera operation, retraction, EEA stapling and for safe and expeditious completion of the procedure. 2. The patient had very focal severe diverticulitis involving the left side of the bladder; however the proximal colon was without inflammation and the distal sigmoid and rectum were without inflammation. I therefore felt that given his adequate bowel prep, lack of proximal obstruction, and lack of diffuse inflammation and infection that a primary anastomosis was in his best interest. 3. We identified an area in the bladder that was repaired as described below. 4. Accessory spleen x2, incidental finding. 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 #1 diverticulitis complicated by abscess and colovesical fistula, present on admission, s/p Laparoscopic sigmoid resection with takedown of colovesical fistula, reconstruction with coloproctostomy as a primary anastomosis, mobilization of splenic flexure, laparoscopic repair of bladder 09/22/16 -clinically stable, -- Dr weiss initially discontinued Zosyn 09/23 . Reportedly infection very localized and completely resected. Restarted by Dr Neal 09/24. plan to discharge on oral antibiotics for a few more days -- Advised diet as tolerated, IV hydration, Zofran for nausea, Protonix for GERD prophylaxis -- Pain control with percocet , discontinued SENIOR CONTROL SYSTEMS ENGINEER -- continue IV fluids -ID Dr Donald on board, continue zosyn for now #2 colovesicular fistula --as above -We will keep Springer for at least 1 week, patient will be discharged with Springer per sx.. He also needs retrograde pyelogram in few day per surgery CODE STATUS: Full code Alternate decision-maker Derick [phone] Disposition: Possible discharge in 2-3 days with by mouth antibiotics and indwelling Springer. VTE Prophylaxis: Sub-Q Heparin (Unfractionated) VTE Mechanical Devices: Venous Foot Pump Resuscitation Status: CPR: Attempt Resuscitation Time spent 35min Jazmine Vazquez MD September 25, 2016 13:08
--- NOTE | 2016-09-25 13:08 | PROG NOTE ---
[address] [address] PROGRESS NOTE PATIENT: DEBRA HENDRICKSON : 1970 MR#: [id number] ADMIT: 09/18/2016 JOB ID: [id number] DATE: 09/25/2016 Postop day three laparoscopic sigmoid resection with takedown of colovesical fistula. He has had a bowel movement. He remains afebrile with stable vital signs. Incisions are healing well. Shola-La drain is serosanguineous, low volume of 16 cc only out the previous 24 hours. LABS: There were no new labs today. IMPRESSION AND PLAN: Doing well. We will advance his diet, get him up on a seat, and anticipate discharging him tomorrow with his Shola-La drain out but with a Torres in. He will need to come back on Monday, October 03, for a retrograde cystogram to make certain that his bladder is completely secure and then he can have his Torres out.
[2016-09-25 14:08] VITALS: BP 116/75; PULSE 76; RESP 18; O2SAT 97
--- NOTE | 2016-09-25 14:41 | NUR ---
Bandages Pt ok'd to shower. Spoke to surgeon software application tester this shift, leave lap sites open to air w/ steri strips, keep transverse bandage in place and ok to remove BRETT drain dressing. All exposed incision areas are c/d/i. Steri strip did come off w/ umbilicus lap site, area well approximated. Pt showered w/o complications returned to bed in locked position and call light w/in reach.
[2016-09-25 20:54] VITALS: BP 112/74; PULSE 68; RESP 18; O2SAT 94
[2016-09-26] MEDS: Heparin 5,000 Unit/mL Inj SUBQ SCH ×2 (00:33→08:35)
[2016-09-26] MEDS: Piperacillin-Tazo 3.375 Gm Inj 3.375 GM in Dextrose 5% Minibag Plus 50 ML IV SCH ×2 (00:35→08:34)
--- NOTE | 2016-09-26 03:39 | NUR ---
PAIN / NICK / DIET Patient reports 06/24 BTP thru NOC w/ use of 2 roxicodone, alternating w/ apap. Tolerating amb hallways several times before HS. Discussed Nick care, including good manny-care around meatus and catheter tubing. Leg bag instructions and use discussed, sample bag and straps provided in order for patient and significant other to become familiar w/ necessary supplies for discharge home. Nick patent, draining large amount of clear yellow urine to gravity. passing flatus, BT hyperactive x 4 quad. Tolerating general diet upgrade. Continue to monitor for changes.
[2016-09-26 04:43] VITALS: BP 109/71; PULSE 59; RESP 18; O2SAT 95
[2016-09-26 06:42] LABS: BASOPHILS % (AUTO) 0.7 % (0-3); EOSINOPHILS % (AUTO) 3.7 % (0-5); MONOCYTES % (AUTO) 8.9 % (4-12); Mean Corpuscular Hemoglobin 29.9 pg (27.0-35.0); Mean Corpuscular Volume 87.5 fL (81-100); NEUTROPHILS % (AUTO) 68.1 % (40-74); Platelet Count 412 bil/L (150-400)
--- NOTE | 2016-09-26 07:12 | PCM.PNSURG ---
Subjective Date of Service: September 26, 2016 Visit Information: Reason for Visit Diverticulitis With Abscess Surgery/Surgery Date Post-Op Day #4 Date of Admission: September 18, 2016 at 14:45 Hospital Day # Subjective: Eating a soft diet with no nausea or vomiting, hungry and requesting more solid foods. Passing flatus but has not had a bowel movement in 2 days. Using MiraLAX and prune-juice. Ambulatory in the hallway without assistance. Pain well controlled on oral analgesic. Postop General: No Complaints Gastrointestinal: Good Appetite, Tolerating Oral Feedings, No N/V, Passing Flatus Pain Management: PO Postop Activity: Ambulating Independently Objective Vital Sign- Last 8 Hours Date Time Temp Pulse Resp B/P Pulse Ox O2 Delivery O2 Flow Rate FiO2 09/26/16 04:43 36.9 59 18 109/71 95 Room Air Intake and Output- Last 8 Hour 09/26/16 Cumulative From/Thru 07:00 09/18/16 10:54 - 09/26/16 06:32 Intake Total 1178 ml 21341 ml Output Total 1500 ml 92199 ml Balance -322 ml 5550 ml Intake Oral 880 ml 92315 ml IV Total 298 ml 10648 ml Output Urine Total 1500 ml 88301 ml Drainage Total 0 ml 160 ml # Voids 32 # Bowel Movements 7 General: Alert, Cooperative, No Acute Distress Lungs: Clear to Auscultation Heart: Regular Rate/Rhythm, No Murmurs/Rubs/Gallops Abdomen: Soft, Appropriately tender, Non-distended SURGICAL WOUND : Wound General Appearence: Steri Strips, Sutures, Intact, Well Approximated, No Erythema, No Discharge Wound Drainage Type: BRETT Drain #1 (minimal serosanguineous output) Extremities: Thigh&Calf Soft/Nontender Neuro: Normal Speech Catheters: Urethral 2 Way Torres Result Diagram: 09/26/16 0615 09/24/16 0515 Assessment & Plan Impression Diverticulitis with abscess and colovesical fistula. POD #4, surgically stable for discharge. Problems: Plan 1. Discharge as per the hospitalist team with Torres catheter and BRETT in place. 2. Retrograde cystogram on October 03. 3. Follow-up in the office with Dr. Weiss on October 03. 4. Continue MiraLAX. 5. Discontinue antibiotics. Pain Management: Oxycodone VTE Prophylaxis: Sub-Q Heparin (Unfractionated) Resuscitation Status: CPR: Attempt Resuscitation copies to: Len Clemens MD, Fred H PA-C September 26, 2016 07:12
--- NOTE | 2016-09-26 07:14 | PCM.DISURG ---
Surgical Discharge Instruction Date of Service September 26, 2016 Dates of Hospitalization Date of Hospital Admission September 18, 2016 at 14:45 Providers Admitting Physician: Krissy Carmen DO Primary Care Physician: Len Clemens MD Attending Physician: Krissy Carmen DO Discharge Diagnosis Discharge Diagnosis Diverticulitis with abscess and colovesical fistula Post Operative diagnosis Same Diet Discharge Diet: No restrictions Activity Discharge Activity-General: Balance rest and activity, Activity as pain allows , No driving while taking narcotic Dressing and Incisional Care Dressing Care: Allow Steri Stripes to fall off Hygiene: September shower Additional Instructions Discharge Instructions Retrograde cystogram on October 03 Follow Up Plan Follow-up Provider (F9): Kenya Weiss MD Follow-up appointment: Date (October 03) Call your provider for: Fever, Chills, Increasing abdominal pain, Nausea, Vomiting, Wound redness, Increasing wound pain, Warmth to touch, Discharge @ incision, pus discharge Carlos Mckeon PA-C September 26, 2016 07:14
[2016-09-26] MEDS: Pantoprazole 4 mg/mL 10 mL Inj IVPUSH SCH (07:21)
[2016-09-26] MEDS ORDERED: 0.9% Sodium Chloride 250 ML ONE (07:29)
[2016-09-26] MEDS: Polyethylene Glycol (PEG) 17 Gm Powder PO SCH (08:33)
[2016-09-26 09:25] VITALS: BP 110/73; PULSE 65; RESP 18; O2SAT 95
[2016-09-26] MEDS ORDERED: POLY17PO6 PO (10:51)
[2016-09-26] MEDS ORDERED: OXYC1TAB24 PO (11:05)
--- NOTE | 2016-09-26 11:10 | NUR ---
Social Work: Discharge D: EMR reviewed. Pt is on day 8 of hospitalization for diverticulitis with abscess per H&P. Per RN notes, pt is ambulating independently in room. Pt is no longer on IVABX and will discharge with POABX as per Hospitalist. Pt is independent at baseline, anticipated to discharge home with fiancee to transport via POV. No anticipated discharge needs. SW will continue to follow if needs arise. A: Pt who is independent at baseline. P: Pt to discharge home with fiancee via POV. No anticipated discharge needs. SW will continue to follow if needs arise. [place] Jimenes
--- NOTE | 2016-09-26 12:55 | NUR ---
Discharge Pt discharged to home with spouse via private vehicle at 1250 hrs. VSS. PIV removed intact. Pain controlled. Instructed pt to strip BRETT line and record drainage amount daily. Pt discharged with Torres catheter in place; instructed pt how to use urinary leg bag. All personal possessions sent with pt. Discharge and follow up instructions given to pt, and he expressed understanding.
--- NOTE | 2016-09-26 15:41 | PCM.DC.MED ---
Discharge Summary Date of Service September 26, 2016 Dates of Hospitalization Date of Hospital Admission September 18, 2016 at 14:45 Date of Discharge: September 26, 2016 Providers: Admitting Physician: Krissy Carmen DO Primary Care Physician: Len Clemens MD Attending Physician: Krissy Carmen DO Diagnosis at Time of Discharge Diagnosis at Time of Discharge acute diverticulitis complicated by abscess and colovesical fistula, Consultations ID Procedures XRay, CTs & MRIs PROCEDURE: CT ABDOMEN AND PELVIS WITH CONTRAST ([id number]) INDICATIONS: llq pain TECHNIQUE: After the administration of intravenous contrast, 5 mm thick sections acquired from the diaphragm to the symphysis. 5 mm coronal and sagittal reformats were acquired. For radiation dose reduction, the following was used: automated exposure control, adjustment of mA and/or kV according to patient size. COMPARISON: [facility], CR, XR ABD ACUTE SERIES 3VW, 04/25/2016, 10:46. [facility], CT, CT ABD PELVIS W CON, 09/26/2015, 11:03. FINDINGS: Image quality: Excellent. ABDOMEN: Lung bases: Lung bases are clear. Heart size is normal. Solid organs: Liver and spleen are normal in size and enhancement. Gallbladder is within normal limits. Biliary system is non dilated. Pancreas enhances normally. No adrenal nodules. Kidneys demonstrate normal size and enhancement, without hydronephrosis. Peritoneum and bowel: Small hiatal hernia. Stomach and small bowel are within normal limits. Appendix is normal. Colon is nondistended. There is diverticulosis of the descending and sigmoid colon. There is severe thickening of the proximal and mid sigmoid colon, with severe surrounding fat stranding. A 32 mm diameter intramural fluid collection within the inferior wall of the proximal sigmoid colon adjacent to the superior urinary bladder wall is present , which extends inferiorly to involve the superior urinary bladder wall. No free fluid or air. Nodes and vessels: No retroperitoneal or mesenteric adenopathy by size criteria. Aorta and inferior vena cava are normal in size. Miscellaneous: No ventral hernias. PELVIS: Genitourinary: There is severe thickening of the superior wall of the urinary bladder adjacent to the proximal sigmoid colon. Intramural fluid collection within the superior bladder wall is present, contiguous with intramural fluid collection involving the adjacent colon. Miscellaneous: No inguinal hernias or adenopathy. Bones: No suspicious bony lesions. No vertebral body compression fractures. IMPRESSION: 1. Severe diverticulitis of the proximal sigmoid colon associated with intramural abscess extending from the colonic wall into the urinary bladder wall. Findings indicate colovesical fistula. 2. Normal appendix. Dictated by: Ti Parks M.D. on 09/18/2016 at 13:27 Approved by: Ti Parks M.D. on 09/18/2016 at 13:30 Other Diagnostics DATE OF SURGERY: PREOPERATIVE DIAGNOSIS(ES): Diverticulitis with abscess and colovesical fistula. POSTOPERATIVE DIAGNOSIS(ES): Diverticulitis with abscess and colovesical fistula. PROCEDURE: Laparoscopic sigmoid resection with takedown of colovesical fistula, reconstruction with coloproctostomy as a primary anastomosis, mobilization of splenic flexure, laparoscopic repair of bladder. SURGEON: Richar Neal MD ASSISTANTS: Kenya Weiss MD and Bari Sanford PA-C INDICATIONS: A 45-year-old male with history of recurrent diverticulitis who presents with a worsening colovesical fistula with symptoms worsening despite antibiotic treatment. He is brought to the operating room for surgery after a 2-day bowel prep and informed consent with the possibility of colostomy or diverting ileostomy discussed with the patient. FINDINGS: 1. assistant clinical director was medically necessary for camera operation, retraction, EEA stapling and for safe and expeditious completion of the procedure. 2. The patient had very focal severe diverticulitis involving the left side of the bladder; however the proximal colon was without inflammation and the distal sigmoid and rectum were without inflammation. I therefore felt that given his adequate bowel prep, lack of proximal obstruction, and lack of diffuse inflammation and infection that a primary anastomosis was in his best interest. 3. We identified an area in the bladder that was repaired as described below. 4. Accessory spleen x2, incidental finding. Brief History HPI obtained by on 09/18 This is a 45-year-old pleasant white male with past medical history of diverticulitis with microperforations that occurred exactly one year ago, questionable hemorrhoids is presenting with LLQ abdominal pain that has been ongoing since yesterday. Patient states that sometimes he gets abdominal cramping followed by a bit of blood in his stool. It is never a large amount of blood but he can wipe it. However the symptoms were much worse this time around and he did not have blood in the stool today. He has had a colonoscopy 4 -5 years ago at [facility]. He states that he has pain with defecation and urination. Patient is scheduled to see Dr. Calvert in 1 month. Patient states that he tried enemas but his constipation has not resolved. He stated that pain is about 4-5 out of 10. Last bowel movement was on last Monday. In between he has had small painful bowel movements. Patient has had subjective fevers, no back pain, chills, nausea vomiting, constipation for a week. He states that he feels bloated and not passing gas, pressure and let bladder for one week as well. Patient states that after last year's episode, he and his fiance have changed their diet to include more vegetables and fiber and they are cutting down and white flour In the ER elevated white count of 13.3 is noted patient is given pain control, CT abdominopelvic with contrast is read as colovesicular fistula, severe diverticulitis of the proximal sigmoid colon, intermural abscess colonic wall to urinary bladder wall. Dr. Clemens from general surgery has seen the patient in the ER examined the patient. He did not feel that patient is experiencing gas while urinating based on his exam though CT has revealed a fistula. He will be following the patient. 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 acute dx #diverticulitis complicated by abscess and colovesical fistula, pt underwent Laparoscopic sigmoid resection with takedown of colovesical fistula, reconstruction with coloproctostomy as a primary anastomosis, mobilization of splenic flexure, laparoscopic repair of bladder 09/22/16. pt was started on zosyn then discontinued by Dr weiss 09/23 . Reportedly infection was very localized and completely resected. Zosyn was Restarted by Dr Neal 09/24. As per /ID , zosyn was stopped as pt received good duration. clinically stable after resection. Pain was controlled. Diet was advanced well. Plan is to keep BRETT drain and follow up with in one week. Psringer cath is also continued until he gets retrograde pyelogram in one week to confirm correction of colovesicular fistula. Patient was discharged on stable condition. Exam Vital Signs (Last) Date Time Temp Pulse Resp B/P Pulse Ox O2 Delivery O2 Flow Rate FiO2 09/26/16 09:25 36.7 65 18 110/73 95 Room Air 09/22/16 14:38 2 Exam NAD, comfortably laying down on the bed no JVD, MMM, no LAD RRR, nl s1, s2 no mrg CTAB, no w,c S,distended, mildly tender on surgical site,normoactive BS+ warm, no edema, pulses 2/2 BRETT drain, springer in place Test 09/18/16 11:12 09/18/16 11:34 09/19/16 06:00 09/21/16 07:20 Urine Color Yellow (YELLOW) Urine Appearance Clear (CLEAR,HAZY) Urine pH 6.0 (5.0-8.0) Urine Specific [place] 1.031 (1.003-1.035) Urine Protein Negativemg/dL (NEG,TRACE) Urine Glucose (UA) Negativemg/dL (NEGATIVE) Urine Ketones 40mg/dL (NEGATIVE) Urine Occult Blood Negative (NEGATIVE) Urine Nitrite Negative (NEGATIVE) Urine Bilirubin Negative (NEGATIVE) Urine Urobilinogen Normalmg/dL (NORMAL) Urine Leukocyte Esterase Negative (NEGATIVE) Urine RBC 0-2/hpf (0-2) Urine WBC 0-5/hpf (0-5) Urine Epithelial Cells Occasional/hpf (NONE-MOD) Urine Crystals None seen (NONE SEEN) Urine Bacteria None/hpf (NONE-FEW) Urine Hyaline Casts None/lpf (NONE) Urine Granular Casts None seen (NONE SEEN) Urine Waxy Casts None seen (NONE SEEN) Urine Red Blood Cell Casts None seen (NONE SEEN) Urine White Blood Cell Casts None seen (NONE SEEN) Urine Mucus Present (None Seen) Urine Trichomonas None seen (NONE SEEN) Urine Yeast None (NONE SEEN) Urinalysis Comment None Urine Culture Reflexed Not indicated Lipase 10U/L (13-60) Hold Giraldo Top Tube Received (Received) Carcinoembryonic Antigen 1.0ng/mL (0.0-4.7) Magnesium Level 1.8mg/dL (1.6-2.6) Test 09/22/16 17:50 09/24/16 05:15 09/26/16 06:15 Prothrombin Time 11.1sec (8.1-12.5) Prothromb Time International Ratio 1.04ratio Total Bilirubin 0.4mg/dL (0.0-1.2) Aspartate Amino Transf (AST/SGOT) 42U/L (0-50) Alanine Aminotransferase (ALT/SGPT) 32U/L (0-44) Alkaline Phosphatase 63U/L (25-150) Total Protein 5.6g/dL (6.4-8.4) Albumin 2.9g/dL (3.4-5.0) White Blood Count 8.9th/mm3 (3.8-10.1) Red Blood Count 4.81mil/mm3 (4.40-5.80) Hemoglobin 14.4g/dL (13.8-17.2) Hematocrit 42.1% (41.0-50.0) Mean Corpuscular Volume 87.5fL (81-100) Mean Corpuscular Hemoglobin 29.9pg (27.0-35.0) Mean Corpuscular Hemoglobin Concent 34.2% (32.0-37.0) Red Cell Distribution Width 12.8% (12.3-15.4) Platelet Count 412bil/L (150-400) Neutrophils (%) (Auto) 68.1% (40-74) Lymphocytes (%) (Auto) 17.8% (14-46) Monocytes (%) (Auto) 8.9% (4-12) Eosinophils (%) (Auto) 3.7% (0-5) Basophils (%) (Auto) 0.7% (0-3) Sodium Level 141mEq/L (134-144) Potassium Level 4.8mEq/L (3.5-5.2) Chloride Level 100mEq/L (97-108) Carbon Dioxide Level 28mmol/L (18-29) Blood Urea Nitrogen 16mg/dL (6-24) Creatinine 0.93mg/dL (0.76-1.27) Estimat Glomerular Filtration Rate 94mL/min (>59) Glucose Level 99mg/dL (60-99) Calcium Level 9.4mg/dL (8.5-10.1) Procalcitonin 0.54ng/mL (0.00-0.08) Discharge Medications Discharge Medications Cyanocobalamin/FA/Pyridoxine (B Complex-Folic Acid Tablet) 1 Each Tablet 1 EACH PO DAILY (Reported) Lactobacillus Rhamnosus GG (Culturelle) 1 Each Capsule 1 CAPSULE PO [facility] Prescribed by: MAKENZIE HIGHTOWER MD Multivitamin (Multi Vitamin Daily) 1 Each Tablet 1 EACH PO DAILY (Reported) Polyethylene Glycol 3350 (Miralax) 17 Gm Powd.pack 17 GM PO DAILY Prescribed by: JAZMINE CHILDS MD Zinc Gluconate (Zinc) 30 Mg Tablet 30 MG PO DAILY (Reported) As needed oxyCODONE-Acetaminophen 5-325 mg (oxyCODONE-Acetaminophen 5-325 mg) 1 Each Tablet 1 TAB PO Q4H PRN PRN For Pain Prescribed by: JAZMINE CHILDS MD Miscellaneous Medications Cholecalciferol (Vitamin D3) (Vitamin D3) 1,000 Unit Tab.chew 1,000 UNIT PO ( Reported) Magnesium Oxide (Magnesium) 250 Mg Tablet 250 MG PO (Reported) Followup Plan Disposition: home Follow-up Provider: Kenya Weiss MD Time spent 65min Jazmine Childs MD September 26, 2016 15:17
--- NOTE | 2016-09-28 16:53 | PATH ---
SURGICAL PATHOLOGY Attending Physician:Richar Neal MD CASE STATUS: Signed Out PATIENT NAME: DEBRA HENDRICKSON PID: [id number] : 1970 DATE COLLECTED:09/22/2016 00:00 SPECIMEN: 1: Colon, Resection Margin (donut) 2: Colon, Resection Margin (donut) 3: Colon, Segment Resection, Non-Tumor CLINICAL HISTORY: DIVERTICULITIS WITH ABSCESS 1). PROXIMAL DONUT 2). DISTAL DONUT 3). SIGMOID COLON FINAL DIAGNOSIS: 1. Proximal Donut: Portion of colorectal wall with patchy acute and chronic inflammation. Negative for dysplasia and malignancy. 2. Distal Donut: Portion of colorectal wall with no diagnostic abnormality. Negative for dysplasia and malignancy. 3. Sigmoid Colon, Laparoscopic Sigmoid Resection and Colovesical Fistula Takedown (Length of Colon 16.5 cm): Diverticulosis and diverticulitis with fistula and abscess. Negative for dysplasia and malignancy. Specimen margins negative for dysplasia and malignancy. ICD10: K57 GROSS DESCRIPTION: The specimens are received in formalin, labeled with the patient's name, and sublabeled as the following: (1) proximal donut; (2) distal donut; (3) sigmoid colon. (1) The specimen consists of an unoriented segment of colon (length-1.0 cm, diameter-2.0 cm) encircled by a blue suture. The mucosa is soto smooth and shiny. No nodules, masses or lesions are identified. Ink code: black-resection margin. Section code: (1A-1B) colon segment, bisected. Specimen entirely submitted. (2) The specimen consists of an unoriented segment of colon (length-0.5 cm, diameter-2.4 cm) with a staple line. The mucosa is soto smooth and shiny. No nodules, masses or lesions are identified. Ink code: black-resection margin. Section code: (2A-2B) colon segment, bisected. Specimen entirely submitted. (3) The specimen consists of an opened unoriented segment of colon (length-16.5, resection margin #1 diameter-2.0 cm, resection margin #2 diameter-2.5 cm) with attached adipose tissue (up to 2.5 cm in depth). The resection margins are received stapled. The mucosa is soto with compact distorted folds contain diffuse diverticuli. The segment and adipose tissue are covered in shoemaker-white smooth shiny exudate. Approximately in the middle of the segment a fissure within the wall is identified. The fissure extends to the mucosa but the mucosa remains intact. No nodules or masses are identified. Ink code: black-resection margin. Section code: (3A) resection margin #1, longitudinally sectioned, direct sales representative; (3B) resection margin #2, longitudinally sectioned, direct sales representative; (3C-3H) colon segment, serially sectioned and submitted from resection margin #1 to #2, direct sales representative. 09/24/16 ICD-9 CODES: CPT CODES: 3: 57531, 15437, 36474 Electronically Signed Out Emelia Casey MD [facility] Pathology [facility] [address], [place] [address] Technical component performed at [facility], [facility] [address], [place], [address]
== END 2016-09-26 12:50 | disposition home or self-care (01) | DRG 330 ==
LOC: SED 10:34 → OSC 14:45
PROVIDERS: ADMIT Family Medicine; ATTEND Family Medicine
PROC: 0TQB4ZZ Repair Bladder, Percutaneous Endoscopic Approach (ICD-10-PCS; 2016-09-22)
PROC: 0DTN4ZZ Resection of Sigmoid Colon, Percutaneous Endoscopic Approach (ICD-10-PCS; principal; 2016-09-22 09:15)
DX: K57.20 Diverticulitis of large intestine with perforation and abscess without bleeding (principal); N32.1 Vesicointestinal fistula; K59.09 Other constipation; Z87.891 Personal history of nicotine dependence